=== PATIENT | female | born 1950 | race Hispanic/Latino ===

== ENCOUNTER → 2018-09-03 12:39 | Outpatient (CLI) | payer MEDICARE, MEDICAID, SELFPAY ==
--- NOTE | 2018-09-03 | DI.MRI.S_ITS ---
PROCEDURE: MR KNEE RT WO CON INDICATIONS: RIGHT KNEE OSTEOARTHRITIS AND PAIN TECHNIQUE: Noncontrast sagittal PD fast spin echo and T2 fast spin echo with fat saturation, sagittal 3-D FLASH with fat saturation; coronal T1 spin echo and PD fast spin echo with fat saturation, and axial PD fast spin echo with fat saturation through the knee. COMPARISON: [facility], MR, PARVIN RT KNEE, 10/09/2014, 19:53. [facility], CR, XR KNEE ARTHRITIC SERIES RT, 08/26/2018, 9:26. FINDINGS: Image quality: Excellent. Menisci: Medial extrusion of the medial meniscus. Linear oblique high T2 signal intensity traverses the medial meniscal body and anterior horn, demonstrating inferior articular surface extension. Radial tearing of the posterior horn medial meniscus adjacent to the meniscal root ligament insertion site. Lateral meniscus demonstrates linear high signal intensity traversing its anterior horn without definite articular surface extension. Cruciate ligaments: The anterior and posterior cruciate ligaments appear intact. Medial structures: The medial collateral ligament appears intact. Visualized portions of the pes anserinus tendons appear normal. Small amount of medial bursal fluid. Lateral structures: The lateral collateral ligament demonstrates mild T2 signal elevation at its femoral origin. long and short heads of the biceps femoris tendon appear intact. The popliteus tendon appears normal. Iliotibial band appears normal. Anterior structures: The quadriceps and patellar tendons appear intact. Patellar alignment is normal. No femoral trochlear dysplasia or ventral trochlear prominence. No edema in the infrapatellar fat pad. Bones and cartilage: No bone marrow contusions or fractures. Severe tricompartmental very articular osteophyte formation is present. There is mild subchondral degenerative marrow edema within the weightbearing aspects of the medial femoral condyle and medial tibial plateau. Severe articular cartilage loss overlies the central femoral trochlea. Joint space: There is a small knee joint effusion and a moderate Staley's cyst. Small ganglion cyst along the popliteus. Normal appearing synovial plicae are incidentally noted. IMPRESSION: 1. Tricompartmental osteoarthritis with associated articular cartilage loss. 2. Complex tearing of the medial meniscus. 3. Low-grade partial-thickness tearing of the lateral collateral ligament. 4. Mild medial bursitis. Dictated by: Barry Fiore M.D. on 09/03/2018 at 13:39 Approved by: Barry Fiore M.D. on 09/03/2018 at 13:43
== END ==
PROVIDERS: Visit Provider Orthopaedic Surgery
DX: S83.231A Complex tear of medial meniscus, current injury, right knee, initial encounter (principal); S83.421A Sprain of lateral collateral ligament of right knee, initial encounter; M17.11 Unilateral primary osteoarthritis, right knee; M71.561 Other bursitis, not elsewhere classified, right knee
CPT/HCPCS: 73721

== ENCOUNTER 2018-10-07 09:08 | Inpatient (IN) | payer MEDICARE, MEDICAID, SELFPAY ==
[2018-09-22 09:42] VITALS: BMI 36.6
[2018-10-06] VITALS (16 sets, daily range): BP systolic 110–176; BP diastolic 41–95; PULSE 60–82; RESP 14–20; TEMP 36.1–36.9; O2SAT 89–100; BMI 36.3; BMI 37.5
[2018-10-06] MEDS: CELECOXIB 200 MG CAPSULE PO (06:50)
[2018-10-06] MEDS: PREGABALIN 75 MG CAPSULE PO (06:50)
[2018-10-06] MEDS: ACETAMINOPHEN 325 MG TABLET 975 MG PO ×3 (06:50→20:15)
[2018-10-06] MEDS: LACTATED RINGERS 1,000 ML 42 ML IV ×2 (07:00→09:08)
[2018-10-06] MEDS: MIDAZOLAM 2 MG/2 ML VIAL IV (07:35)
--- NOTE | 2018-10-06 07:35 | SUR.PREOP ---
0738 block start time [] . Monitoring initiated and maintained throughout procedure. Oxygen and medications given per anesthesiologist instructions. Patient remained stable throughout procedure, no adverse reactions noted. Block end time [1145]
[2018-10-06] MEDS: fentaNYL 100 MCG/2 ML INJ 50 MCG IV (07:36)
--- NOTE | 2018-10-06 07:37 | PM.PREOP ---
Pre-operative Note Interval Note History & Physical reviewed/Exam performed by Physician: Yes Changes to H&P: No
--- NOTE | 2018-10-06 07:45 | DI.RAD.S_ITS ---
PROCEDURE: XR KNEE RT 1TO2V INDICATIONS: TKA TECHNIQUE: 2 view(s) of the knee acquired. COMPARISON: None. FINDINGS: Bones: Patient is status post knee joint arthroplasty. Hardware components are in expected positions. Visualized bony structures are intact. Soft tissues: Overlying postoperative changes are noted. IMPRESSION: Normal alignment after right total knee arthroplasty. Dictated by: Marlon Bocanegra M.D. on 10/06/2018 at 11:13 Approved by: Marlon Bocanegra M.D. on 10/06/2018 at 11:14
--- NOTE | 2018-10-06 08:04 | P.OP_ITS ---
Operative Date/Time/Diagnoses Date of procedure: 10/06/18 Time of procedure: 09:37 Pre-op diagnosis: Right knee osteoarthritis Post-op diagnosis: same Procedure & Clinicians Procedure: Right total knee arthroplasty Same procedure as scheduled: Yes Indications: The patient presents today for total knee arthroplasty after failure of conservative treatment. The nature of the procedure including the risks and benefits, alternatives, postoperative course and expected outcome were discussed and all questions answered. Consent was obtained. Operative site confirmed and marked. Surgeon: Cali Vizcaino Concrete Smoother: Jorge Slater Anesthesia Type: General, Spinal and Local Operative Notes Findings: The patient had a severe varus deformity. This is required a relatively thick cut laterally even with a thin medial cut. There was medial tightness which was fully corrected with releases. A 15 mm insert was required for adequate stability. Closure Type: primary Specimen(s): none sent Prosthetic devices, grafts, tissues, transplants, or devices: [employer] [facility] BCS: 3 femoral component, 3 tibial component, 15 mm BCS polyethylene tray and 32 x 9 mm round patella Applied: implant(s) Estimated Blood Loss (mL): 25 Blood products transfused: none Tourniquet time (min): 25 Procedure in detail: The patient was taken to the operative suite and placed under general and spinal anesthesia. The patient was given prophylactic antibiotics prior to surgery. The patient was also given tranexamic acid, 1 g, just prior to surgery for postoperative hemostasis. The lateral knee was prepped and the joint injected with 20 mL of 1% Lidocaine with epinephrine. The knee was then prepped and draped in usual sterile fashion. The leg was exsanguinated with an Esmarch dressing and the tourniquet raised to 250 torr. A 15 cm anterior incision was made. Next a medial trivector arthrotomy was made. The extensor mechanism was marked to ensure accurate repair. Initial exposing dissection was carried out medially and laterally. The knee was then extended and the patellar thickness was measured and a cut made removing approximately 9 mm of bone with a goal of restoring normal patellar thickness. The patella was then sized and drilled. Some excess lateral bone was excised and the patellofemoral ligament released. The tourniquet was then released. The knee was then flexed and the [employer] femoral guide was placed. The anterior pins were placed and the distal rotation holes drilled. The distal cutting guide was placed and the templated distal femoral cut was made. The templating cutting block was then placed and the anterior, posterior and chamfer cuts made. The [employer] tibial guide was placed and the alignment checked along the axis of the proximal tibial with a tami. The proximal tibial cut was then made with an oscillating saw. All meniscus and bony debris was then removed. Flexion extension gaps were checked. there was still some medial tightness in both flexion and extension. The knee was balanced with percutaneous release of the MCL with an 18 gauge needle. The soft tissues were then injected with a combination of 20 mL of half percent Marcaine with epinephrine and 20 mL of Exparel. The trial components were then placed. The knee went into full extension and flexion beyond 120?. There was good medial- lateral balance throughout motion but this did require a 15 mm insert because of her severe deformity and large lateral cut. Patellar tracking was excellent. The trial components were removed and size is confirmed for the final implants. The knee was then exsanguinated with an Esmarch dressing and the tourniquet reapplied for cementing. The knee was cleansed with Pulsavac irrigation and dried. The final components were cemented in with high viscosity vacuum mixed bone cement with antibiotics. The knee was held in extension and the patellar clamp until the cement had adequately cured. The knee was then irrigated with dilute Betadine solution. The extensor mechanism was closed with 5 interrupted #1 Vicryl sutures in 90 degrees of flexion. The joint was then injected with a combination of 1 g of tranexamic acid and 20 mL of quarter percent Marcaine with epinephrine. The subcutaneous tissue was closed with 2-0 Vicryl. The skin was closed with tena and surgical adhesive. An Aquacel dressing and Faustino wrap were then applied. Complications: none Condition: stable Disposition: PACU Plan for aftercare: [facility] protocol for total knee arthroplasty.
[2018-10-06] MEDS: CEFAZOLIN 2 GM/100 ML FROZ.PIGGY IV ×3 (08:05→23:44)
--- NOTE | 2018-10-06 08:32 | SUR.OPER ---
Supine on padded OR bed. Pillow under head, arms secured on padded armboards <90 degree abduction. Safety belt across torso. Non-operative leg secured with tape over blanket over lower leg. Operative leg secured in Manjit positioner. Foam padded brace at thigh of operative leg.
[2018-10-06] MEDS: BUPIVACAINE 0.25% W/ EPI (PF) 20 ML, TRANEXAMIC ACID 1,000 MG, SODIUM CHLORIDE 0.9% 10 ML INJ (08:41)
[2018-10-06] MEDS: LIDOCAINE 1% W/EPI INJ 20 ML INJ (08:42)
[2018-10-06] MEDS: BUPIVACAINE LIPOSOME 266 MG/20 ML VIAL INJ (08:44)
[2018-10-06] MEDS: LACTATED RINGERS 1,000 ML 125 ML IV ×2 (11:30→19:36)
[2018-10-06] MEDS: OXYCODONE IR 5 MG TABLET PO ×2 (12:24→18:10)
[2018-10-06] MEDS: ONDANSETRON 4 MG/2 ML INJ IV ×2 (12:39→18:05)
[2018-10-06] MEDS: HYDROMORPHONE 0.5 MG INJ IV ×2 (13:16→16:07)
--- NOTE | 2018-10-06 14:57 | PC.NURSE ---
Pt arrived to floor around 1100. She slept for about an hour and then woke up crying in pain. Dresing to R.knee is CDI with jessica wrap. Given 1 oxycodone, tylenol, and zofran for nausea. Checked 45 minutes later and pts pain level still at a 10/10. Pt then given 0.5mg of iv dilaudid and helpful. She is sleeping soundly on her back with leg elevated under a pillow. Pt is arousable to voice and comfortable. Ofelia in room visiting. IVF infusing at 125cc/hr.
--- NOTE | 2018-10-06 15:21 | PT.IPTN ---
Current Diagnoses Unilateral primary osteoarthritis, right knee (10/06/18) Surgery Performed Operation Date: 10/06/18 07:45 Actual Procedures p Total Knee Arthroplasty(Right) - Cali Vizcaino MD Physical Therapy Treatment Note M3 PT-IP Subjective Start: 10/06/18 15:20 Freq: NEEDED Status: Active Protocol: Document 10/06/18 15:20 AB (Rec: 10/06/18 15:21 AB [id number]) Subjective Physical Therapy Visit Type Notes checked on pt and pt is asleep . daughter present and stated that pt had gotten the max dose of pain meds and does not want pt to do PT eval at this time. will f/u tomorrow.
[2018-10-06] MEDS: ASPIRIN EC 81 MG TABLET PO (20:16)
[2018-10-06] MEDS: METOCLOPRAMIDE 10 MG/2 ML INJ IV (21:35)
--- NOTE | 2018-10-06 22:15 | PC.NURSE ---
1607: pt A&OX3. 97%2L. / pain. pt had dilaudid 0.5mg IV then got nauseated after the medication. IVF infusing. 1809: pain 11/22, 94% 2L at sleep, 97% while awake. medicated pt with 1 tab of percolone. and administered zofran for nausea. pt has not been oob. 1pa w/bedpan. R. leg slightly numb. call light in reach. bed alarm active.
[2018-10-07] VITALS (9 sets, daily range): BP systolic 110–196; BP diastolic 66–89; PULSE 57–70; RESP 16–19; TEMP 36.6–37.3; O2SAT 93–98
[2018-10-07] MEDS: OXYCODONE IR 10 MG TABLET PO ×5 (01:44→21:00)
[2018-10-07 06:10] LABS: Hematocrit 37.6 % (36-46); Hemoglobin 12.8 g/dL (12.0-16.0)
[2018-10-07] MEDS: LEVOTHYROXINE 125 MCG TABLET PO (06:21)
--- NOTE | 2018-10-07 06:34 | PC.NURSE ---
Pt crying after turning in bed, stating pain is 8 out of 10. 10mg Percolone given, pt fell asleep right after. Pt again crying this morning. Tolerating 1.5L NC at 93% throughout the night. Right knee dressing is clean, dry, and intact. Aquacel, wrapped in jessica bandage. CMS+, good pulses in feet, can move leg but not lift. IVF d/c'ed this AM. No nausea overnight. Drinking PO liquids
--- NOTE | 2018-10-07 07:30 | PM.PNPO.1 ---
Subjective Date Patient Seen: 10/07/18 Time Patient Seen: 07:31 Interval history: Patient states her pain has been severe. Denies fever. Notes some chills overnight. No nausea vomiting. Has not been out of bed yet. Grandson and granddaughter are available to assist her at home. Exam Vital Signs (past 8 hours): - 10/06/18 23:45 10/07/18 06:23 Temperature 97.8 F 98.0 F Pulse Rate 67 64 Respiratory Rate 17 19 Blood Pressure 140/68 136/75 Pulse Oximetry 99 95 Oxygen Delivery Method Nasal Cannula Oxygen Flow Rate 2 Narrative Exam Narrative: 68-year-old female resting in bed in no apparent distress. dressing is clean, dry and intact. Neurovascular status is intact distal right lower extremity. Objective Labs Result Diagrams: 10/07/18 05:57 Labs: Laboratory Results - last 24 hr 10/07/18 05:57 Hgb 12.8 Hct 37.6 Assessment & Plan Post-op Postoperative Procedures Operation Date: 10/06/18 07:45 Actual Procedures Side Surgeon p Total Knee Arthroplasty Right Cali Vizcaino MD Weightbearing as tolerated right lower extremity. Mobilize with physical therapy. Likely discharge home tomorrow. Quality VTE Deep Vein Thrombosis/Pulmonary Embolism Present on Admission: No
[2018-10-07] MEDS: MELOXICAM 7.5 MG TABLET 15 MG PO (07:42)
[2018-10-07] MEDS: METOPROLOL ER 25 MG TABLET PO (08:35)
[2018-10-07] MEDS: ACETAMINOPHEN 325 MG TABLET 975 MG PO ×3 (08:35→21:02)
[2018-10-07] MEDS: ASPIRIN EC 81 MG TABLET PO ×2 (08:36→21:02)
--- NOTE | 2018-10-07 09:42 | PT.IIE ---
Current Diagnoses Unilateral primary osteoarthritis, right knee (10/06/18) Surgery Performed Operation Date: 10/06/18 07:45 Actual Procedures p Total Knee Arthroplasty(Right) - Cali Vizcaino MD Surgical History (Last Updated 09/27/18 @ 10:24 by Adriane Ledezma RN) History of bilateral carpal tunnel release (Acute) History of bilateral tubal ligation (Acute ~1971) History of bladder suspension procedure (Acute) Hx of appendectomy (Acute) Hx of cholecystectomy (Acute) Hx of elbow surgery (Acute) Hx of hernia repair (Acute) Hx of tonsillectomy (Acute) S/P right oophorectomy (Acute) Medical History (Last Updated 09/27/18 @ 10:24 by Adriane Ledezma RN) Eczema (Acute) HTN (hypertension) (Acute) Hypothyroid (Acute) Lower back pain (Acute) Osteoarthritis (Acute) Seborrheic keratoses (Acute) Physical Therapy Inpatient Evaluation/Re-Eval M1 PT/OT-IP Prior Functional Status Start: 10/06/18 15:20 Freq: NEEDED Status: Active Protocol: Document 10/07/18 09:42 AB (Rec: 10/07/18 11:55 AB [id number]) Medical Review Prior Functional Status Medical History Reviewed Yes Communication able to make needs known Mobility and Gait pt stated that she is mod I with all mobilities and ambulation without AD indoors; uses SPC outdoors/electric scooter Social History Household Members family Living Arrangements Apartment/Condo Number of Floors (Floors) One Floor Number of Stairs To Enter/Railing? no steps to enter Home Environment Standard Height Toilet Tub/Shower Home Equipment Raised Toilet Seat Without Armrests Shower Seat without Backrest Employment Status Retired Additional Social History Comment pt lives with grandson who can assist her in the morning but goes to work from 1pm to 1030pm. M2 PT-IP Current Condition Start: 10/06/18 15:20 Freq: NEEDED Status: Active Protocol: Document 10/07/18 09:42 AB (Rec: 10/07/18 11:55 AB [id number]) Physical Therapy Current Condition Current Condition Evaluation Date 10/07/18 Treatment Diagnosis s/p R TKA; difficulty in walking Onset Date 10/06/18 Weight Bearing Status Weight Bearing Status Weight Bear as Tolerated M3 PT-IP Subjective Start: 10/06/18 15:20 Freq: NEEDED Status: Active Protocol: Document 10/07/18 09:42 AB (Rec: 10/07/18 11:55 AB [id number]) Subjective Physical Therapy Visit Type Type Initial Evaluation Visit Start Time 09:42 Visit Stop Time 10:28 Total Visit Minutes 46 Number of SUGGESTION CLERK Visits 0 Physical Therapy Visit Comments Patient Comments pt agreeable to do PT Therapy Pain Assessment Pain When Pain Assessed At Rest Pain Present Pain Present Pain Reported Location Right Knee Intensity 6 Scale Used Numeric (1 - 10) Pain Management Techniques Apply Cold Re-positioning Timing of Activity with Medications M4 PT-IP Mobility and Gait Start: 10/06/18 15:20 Freq: NEEDED Status: Active Protocol: Document 10/07/18 09:42 AB (Rec: 10/07/18 11:55 AB [id number]) PT-Bed Mobility Assessment Rolling Type of Rolling Roll to Right Level of Assist Minimal Assistance Supine to Sit Supine to Sit Contact Guard Assistance PT-Transfer Assessment Sit to and From Stand Sit to and from Stand Moderate Assistance Maximum Assistance 1 Person Assistance Equipment Transfer Assistive Device Gait Belt Front Wheeled Walker Orthotic/Prosthetic Devices or Brace: No Transfers Transfer Destination Chair Bedside Commode Transfer Technique Stand Step Pivot Transfer Ability Level of Assist Moderate Assistance 1 Person Assistance Use of Upper Extremities Comments Mobility Comments pt requested to use the toilet . positioned bedside commode next to bed. pt completed sit to stand mod to max A and max cues and completed stand step pivot transfer using FWW mod A and cues bed to bedside commode. pt completed sit to stand from bedside commode mod to max A and was able to maintain standing balance using FWW for support mod A and cues while NAC assisted with brief management. pt agreed to sit up on chair and completed stand step transfer to the chair using FWW mod A and max cues. positioned pt on chair. call light and table placed witin reach. Gait Assessment Comments Gait Comments unable at this time PT-Balance Assessment Sitting Balance and Reactions Static Sitting Balance Ability Good Dynamic Sitting Balance Ability Good Standing Balance and Reactions Static Standing Balance Ability Fair Dynamic Standing Balance Ability Poor Device Used FWW M5 PT-IP Objective Assessments Start: 10/06/18 15:20 Freq: NEEDED Status: Active Protocol: Document 10/07/18 09:42 AB (Rec: 10/07/18 11:55 AB [id number]) Orientation Orientation/Cognition Level of Alertness Alert Orientation Name Place Situation Language Function Ability No Deficits Noted Safety Awareness Decreased Safety Awareness Memory Description Short Term Impaired Gross Range of Motion Lower Extremity ROM Assessment Right Impaired Impairments R knee flexion up to 50 degrees R knee extension lacking 20 degrees to neutral Strength Lower Extremity Strength Assessment Bilaterally Impaired Comments Strength Comments RLE 3-/5 LLE: 3+/5 Coordination Assessment Gross Coordination Gross Coordination WNL Sensation Assessment Sensation Gross Sensation WNL Muscle Tone Muscle Tone WNL Yes M6 PT-IP Treatment Start: 10/06/18 15:20 Freq: NEEDED Status: Active Protocol: Document 10/07/18 09:42 AB (Rec: 10/07/18 11:55 AB [id number]) Physical Therapy Treatment Education Education Provided Precautions Weight Bearing Status Post-Op Packet Safety M7 PT-IP Assessment and Plan Start: 10/06/18 15:20 Freq: NEEDED Status: Active Protocol: Document 10/07/18 09:42 AB (Rec: 10/07/18 11:55 AB [id number]) PT Summary Assessment and Plan Potential Rehabilitation Potential Fair Status of Condition at Evaluation Evolving Summary Impairments Pain ROM Strength Balance Coordination Sensation Bed Mobility Transfers Gait Activity Tolerance Assessment Summary pt requiring mod to max a with mobility and has decrease activity tolerance affecting functional mobility. pt will require SNF rehab at this time to improve strength and independence prior to d/c home . Goals Bed Mobility Goal Standby Assistance Transfer Goal Standby Assistance Front Wheeled Walker Gait Goal Standby Assistance Front Wheel Walker Gait Distance 100 Days to Meet Goals 5 Frequency of Treatment Frequency Of Treatment Twice a Day Treatment Plan Physical Therapy Treatment Plan Bed Mobility Training Transfer Training Gait Training Therapeutic Exercise Balance Retraining Post Op Education Discharge Planning Hot or Cold Pack Neuromuscular Re-ed Coordination Retraining Manual Therapy Other Recommendations and Next Treatment ambulation Focus Recommendations To Nursing Amount of Assist Needed 2 Person Assist Discharge Recommendations PT Discharge Recommendations SNF Rehab
--- NOTE | 2018-10-07 10:26 | CM.IDA ---
Initial DCP Assessment Note: Pt is a 68 yo female, resident of [place], POD#1 from her knee surgery w/ Dr Vizcaino. PCP: Dr Carter Lawson Payer: Medicare/Medicaid According to chart review, pt has been crying and complaining of out of control pain post operatively. Met w/pt this morning to explain role. She is mostly indp. at baseline, lives w/20 yo her grandson Isaias. He works in the afternoon/evening at [employer]. Grand dtmichelle Thornton P# [phone] has 5 children and lives in [place]. Pt's denies having contact w/ adult child(ish) ? Re: plan ? Pt hesitates and says she has planned to go home because it's all I know then states she didn't think about who would be available to her since grandsergio works and grand rosas has a large family of her own. This RIVER CAPTAIN suggests return and discussion of DCP after pt works w/PT today and pt agrees and grateful for the visit. LATA Rhodes Discharge Planning/Care Management CM Discharge Assessment Start: 10/07/18 10:22 Freq: Status: Active Protocol: Document 10/07/18 10:22 JIM (Rec: 10/07/18 10:26 JIM [id number]) Discharge Planning Assessment Assigned Super[employer] LATA Cifuentes DPOA/Assigned Designee Name No Isaias MCKINNON (grandsergio) number (?) grand alison Thornton Contact Information [phone] Advance Directives? No: Declines further information History Provided By Patient Prior Living Arrangements Apartment/Condo Household Members family Comment My [facility] Type of transporation used prior to Relies on Others admit Independent with ADL's Yes Is patient alert and oriented? Yes Patient/Family Preference [facility] Facility Home with Home Health Comment Unknown at this time Barriers to Discharge Yes Whiteboard Updated in Patient Room with Yes name and ext. # of Super[employer] Review Status In Process
--- NOTE | 2018-10-07 13:49 | PC.NURSE ---
Pt is having pain 6-810. Medicated w/ oxycodone Q3 hrs and Tylenol BID.
--- NOTE | 2018-10-07 13:59 | PT.IPTN ---
Current Diagnoses Unilateral primary osteoarthritis, right knee (10/06/18) Surgery Performed Operation Date: 10/06/18 07:45 Actual Procedures p Total Knee Arthroplasty(Right) - Cali Vizcaino MD Physical Therapy Treatment Note M2 PT-IP Current Condition Start: 10/06/18 15:20 Freq: NEEDED Status: Active Protocol: Document 10/07/18 09:42 AB (Rec: 10/07/18 11:55 AB [id number]) Physical Therapy Current Condition Current Condition Evaluation Date 10/07/18 Treatment Diagnosis s/p R TKA; difficulty in walking Onset Date 10/06/18 Weight Bearing Status Weight Bearing Status Weight Bear as Tolerated M3 PT-IP Subjective Start: 10/06/18 15:20 Freq: NEEDED Status: Active Protocol: Document 10/07/18 13:59 AB (Rec: 10/07/18 16:35 AB [id number]) Subjective Physical Therapy Visit Type Type Treatment Note Visit Start Time 13:59 Visit Stop Time 14:31 Total Visit Minutes 32 Number of BRUSHER WARP Visits 0 Physical Therapy Visit Comments Patient Comments pt agreeable to do PT Therapy Pain Assessment Pain When Pain Assessed At Rest Pain Present Pain Present Pain Reported Location Head Intensity 6 Scale Used Numeric (1 - 10) Pain Behaviors Crying Facial Grimacing Guarding Moaning Pain Management Techniques Apply Cold Re-positioning Timing of Activity with Medications M4 PT-IP Mobility and Gait Start: 10/06/18 15:20 Freq: NEEDED Status: Active Protocol: Document 10/07/18 13:59 AB (Rec: 10/07/18 16:35 AB [id number]) PT-Bed Mobility Assessment Supine to Sit Supine to Sit Maximum Assistance 1 Person Assistance Scooting Scooting to Edge of Bed Maximum Assistance PT-Transfer Assessment Sit to and From Stand Sit to and from Stand Moderate Assistance Maximum Assistance 1 Person Assistance Use of Upper Extremities Equipment Transfer Assistive Device Gait Belt Front Wheeled Walker Orthotic/Prosthetic Devices or Brace: No Transfers Transfer Destination Toilet Transfer Technique pt ambulated using FWW Transfer Ability Level of Assist Moderate Assistance Maximum Assistance 1 Person Assistance Use of Upper Extremities Comments Mobility Comments pt completed supine to sit max A and cues. pt was able to sit on EOB SBA. requested to use the toilet and completed sit to stand mod to max A and max cues. pt ambulated towards the toilet ` 10 ft using FWW mod to max A and max cues. pt with antalgic gait and decrease RLE elevation. pt was able to maintain standing balance/tolerance using FWW for support mod A while assisted with brief managment. pt completed sit to stand from the toilet mod A using grab bar to assist. pt . ambulated towards the chair ~ 3 ft using FWW mod to max A and max cues. positioned pt on chair. call light and table placed within reach. ice pack provided. Gait Assessment Comments Gait Comments pt ambulated to the toilet. pls refer to mobility section for details M5 PT-IP Objective Assessments Start: 10/06/18 15:20 Freq: NEEDED Status: Active Protocol: Document 10/07/18 09:42 AB (Rec: 10/07/18 11:55 AB [id number]) Orientation Orientation/Cognition Level of Alertness Alert Orientation Name Place Situation Language Function Ability No Deficits Noted Safety Awareness Decreased Safety Awareness Memory Description Short Term Impaired Gross Range of Motion Lower Extremity ROM Assessment Right Impaired Impairments R knee flexion up to 50 degrees R knee extension lacking 20 degrees to neutral Strength Lower Extremity Strength Assessment Bilaterally Impaired Comments Strength Comments RLE 3-/5 LLE: 3+/5 Coordination Assessment Gross Coordination Gross Coordination WNL Sensation Assessment Sensation Gross Sensation WNL Muscle Tone Muscle Tone WNL Yes M6 PT-IP Treatment Start: 10/06/18 15:20 Freq: NEEDED Status: Active Protocol: Document 10/07/18 13:59 AB (Rec: 10/07/18 16:35 AB [id number]) Physical Therapy Treatment Exercises Exercises Heel Slides Education Education Provided Weight Bearing Status Safety M7 PT-IP Assessment and Plan Start: 10/06/18 15:20 Freq: NEEDED Status: Active Protocol: Document 10/07/18 13:59 AB (Rec: 10/07/18 16:35 AB [id number]) PT Summary Assessment and Plan Potential Rehabilitation Potential Fair Summary Impairments Pain ROM Strength Balance Coordination Sensation Bed Mobility Transfers Gait Activity Tolerance Progress Towards Goals Slow Progress due to Pain Assessment Summary pt requiring mod to max A with all tasks and will benefit from SNF rehab to improve strength and mobility. Goals Bed Mobility Goal Standby Assistance Transfer Goal Standby Assistance Front Wheeled Walker Gait Goal Standby Assistance Front Wheel Walker Gait Distance 100 Days to Meet Goals 5 Frequency of Treatment Frequency Of Treatment Twice a Day Treatment Plan Physical Therapy Treatment Plan Bed Mobility Training Transfer Training Gait Training Therapeutic Exercise Balance Retraining Post Op Education Discharge Planning Hot or Cold Pack Neuromuscular Re-ed Coordination Retraining Manual Therapy Other Recommendations and Next Treatment ambulation Focus Recommendations To Nursing Amount of Assist Needed 2 Person Assist Discharge Recommendations PT Discharge Recommendations SNF Rehab
[2018-10-07] MEDS: OXYCODONE IR 5 MG TABLET PO (18:13)
[2018-10-08] VITALS (10 sets, daily range): BP systolic 126–174; BP diastolic 56–90; PULSE 61–80; RESP 16–20; TEMP 36.8–37.4; O2SAT 92–95
[2018-10-08] MEDS: OXYCODONE IR 5 MG TABLET PO ×5 (01:13→23:22)
[2018-10-08] MEDS: LEVOTHYROXINE 125 MCG TABLET PO (05:19)
[2018-10-08] MEDS: OXYCODONE IR 10 MG TABLET PO (05:19)
[2018-10-08] MEDS: MELOXICAM 7.5 MG TABLET 15 MG PO (08:37)
[2018-10-08] MEDS: ACETAMINOPHEN 325 MG TABLET 975 MG PO ×3 (08:38→20:10)
[2018-10-08] MEDS: PROCHLORPERAZINE 5 MG TABLET PO (08:38)
[2018-10-08] MEDS: ASPIRIN EC 81 MG TABLET PO ×2 (08:38→20:10)
[2018-10-08] MEDS: METOPROLOL ER 25 MG TABLET PO (08:39)
[2018-10-08] MEDS: SODIUM CHLORIDE 0.9% FLUSH 10 ML IV ×2 (08:39→20:11)
--- NOTE | 2018-10-08 10:22 | PT.IPTN ---
Current Diagnoses Unilateral primary osteoarthritis, right knee (10/06/18) Surgery Performed Operation Date: 10/06/18 07:45 Actual Procedures p Total Knee Arthroplasty(Right) - Cali Vizcaino MD Physical Therapy Treatment Note M2 PT-IP Current Condition Start: 10/06/18 15:20 Freq: NEEDED Status: Active Protocol: Document 10/07/18 09:42 AB (Rec: 10/07/18 11:55 AB [id number]) Physical Therapy Current Condition Current Condition Evaluation Date 10/07/18 Treatment Diagnosis s/p R TKA; difficulty in walking Onset Date 10/06/18 Weight Bearing Status Weight Bearing Status Weight Bear as Tolerated M3 PT-IP Subjective Start: 10/06/18 15:20 Freq: NEEDED Status: Active Protocol: Document 10/08/18 10:22 AB (Rec: 10/08/18 11:12 AB [id number]) Subjective Physical Therapy Visit Type Type Treatment Note Visit Start Time 10:22 Visit Stop Time 10:50 Total Visit Minutes 28 Number of SHIPPING AND RECEIVING CLERK Visits 0 Physical Therapy Visit Comments Patient Comments pt agreeable to do PT; requested to use the toilet Therapy Pain Assessment Pain When Pain Assessed At Rest Pain Present Pain Present Pain Reported Location Right Knee Intensity 6 Scale Used Numeric (1 - 10) Pain Behaviors Guarding Moaning Pain Management Techniques Apply Cold Timing of Activity with Medications M4 PT-IP Mobility and Gait Start: 10/06/18 15:20 Freq: NEEDED Status: Active Protocol: Document 10/08/18 10:22 AB (Rec: 10/08/18 11:12 AB [id number]) PT-Transfer Assessment Sit to and From Stand Sit to and from Stand Minimal Assistance 1 Person Assistance Use of Upper Extremities Equipment Transfer Assistive Device Gait Belt Front Wheeled Walker Transfers Transfer Destination Toilet Transfer Technique pt ambulated to the toilet Transfer Ability Level of Assist Minimal Assistance 1 Person Assistance Use of Upper Extremities Comments Mobility Comments pt ambulated from the chair to the toilet using FWW min A and cues ~ 10 ft. pt was able to maintain standing using FWW for support CGA while assisted with brief management . pt completed sit to stand from the toilet using grab bar to assist min A and cues. ambulated towards the sink min A using fWW ~ 10 ft. pt was able to maintain standing leaning against the sink for support CGA while completing handwashing and grooming. pt ambulated back to the chair using FWW ~ 8 ft min A. pt continues to c/o increase pain on R knee. requires increase time to complete tasks. positioned pt on chair. call light and table placed within reach. Gait Assessment Comments Gait Comments pt ambulated to the toilet. M5 PT-IP Objective Assessments Start: 10/06/18 15:20 Freq: NEEDED Status: Active Protocol: Document 10/07/18 09:42 AB (Rec: 10/07/18 11:55 AB [id number]) Orientation Orientation/Cognition Level of Alertness Alert Orientation Name Place Situation Language Function Ability No Deficits Noted Safety Awareness Decreased Safety Awareness Memory Description Short Term Impaired Gross Range of Motion Lower Extremity ROM Assessment Right Impaired Impairments R knee flexion up to 50 degrees R knee extension lacking 20 degrees to neutral Strength Lower Extremity Strength Assessment Bilaterally Impaired Comments Strength Comments RLE 3-/5 LLE: 3+/5 Coordination Assessment Gross Coordination Gross Coordination WNL Sensation Assessment Sensation Gross Sensation WNL Muscle Tone Muscle Tone WNL Yes M6 PT-IP Treatment Start: 10/06/18 15:20 Freq: NEEDED Status: Active Protocol: Document 10/08/18 10:22 AB (Rec: 10/08/18 11:12 AB [id number]) Physical Therapy Treatment Exercises Exercises Heel Slides Education Education Provided Precautions Safety M7 PT-IP Assessment and Plan Start: 10/06/18 15:20 Freq: NEEDED Status: Active Protocol: Document 10/08/18 10:22 AB (Rec: 10/08/18 11:12 AB [id number]) PT Summary Assessment and Plan Potential Rehabilitation Potential Fair Summary Impairments Pain ROM Strength Balance Coordination Sensation Bed Mobility Transfers Gait Activity Tolerance Progress Towards Goals Slow Progress due to Pain Assessment Summary pt improving slowly with mobility but continues to c/o increase pain on R knee. pt requires increase time to complete tasks. pt will need SNF rehab to improve strength and functional independence. Goals Bed Mobility Goal Standby Assistance Transfer Goal Standby Assistance Front Wheeled Walker Gait Goal Standby Assistance Front Wheel Walker Gait Distance 100 Days to Meet Goals 5 Frequency of Treatment Frequency Of Treatment Twice a Day Treatment Plan Physical Therapy Treatment Plan Bed Mobility Training Transfer Training Gait Training Therapeutic Exercise Balance Retraining Post Op Education Discharge Planning Hot or Cold Pack Neuromuscular Re-ed Coordination Retraining Manual Therapy Other Recommendations and Next Treatment ambulation Focus Recommendations To Nursing Amount of Assist Needed 1 Person Assist Discharge Recommendations PT Discharge Recommendations SNF Rehab
--- NOTE | 2018-10-08 14:12 | PT.IPTN ---
Current Diagnoses Unilateral primary osteoarthritis, right knee (10/06/18) Surgery Performed Operation Date: 10/06/18 07:45 Actual Procedures p Total Knee Arthroplasty(Right) - Cali Vizcaino MD Physical Therapy Treatment Note M2 PT-IP Current Condition Start: 10/06/18 15:20 Freq: NEEDED Status: Active Protocol: Document 10/07/18 09:42 AB (Rec: 10/07/18 11:55 AB [id number]) Physical Therapy Current Condition Current Condition Evaluation Date 10/07/18 Treatment Diagnosis s/p R TKA; difficulty in walking Onset Date 10/06/18 Weight Bearing Status Weight Bearing Status Weight Bear as Tolerated M3 PT-IP Subjective Start: 10/06/18 15:20 Freq: NEEDED Status: Active Protocol: Document 10/08/18 14:12 AB (Rec: 10/08/18 15:39 AB [id number]) Subjective Physical Therapy Visit Type Type Treatment Note Visit Start Time 14:12 Visit Stop Time 14:30 Total Visit Minutes 18 Number of CORPORATE WELLNESS COORDINATOR Visits 0 Therapy Pain Assessment Pain When Pain Assessed At Rest Location Right Knee Intensity 6 Scale Used Numeric (1 - 10) M4 PT-IP Mobility and Gait Start: 10/06/18 15:20 Freq: NEEDED Status: Active Protocol: Document 10/08/18 14:12 AB (Rec: 10/08/18 15:39 AB [id number]) PT-Transfer Assessment Sit to and From Stand Sit to and from Stand Minimal Assistance 1 Person Assistance Use of Upper Extremities Equipment Transfer Assistive Device Gait Belt Front Wheeled Walker Orthotic/Prosthetic Devices or Brace: No Transfers Transfer Destination Toilet Transfer Technique pt ambulated to the toilet using fWW Transfer Ability Level of Assist Minimal Assistance Use of Upper Extremities Comments Mobility Comments pt completed sit to stand from chair min A and cues. requires increase time to complete task. pt requested to use the toilet and ambulated using FWW CGA to min A and cues. pt was able to maintain standing using FWW for support CGA while assisted with brief management. pt wants to sit on the toilet for awhile. call light positioned nex to pt and instructed to pull call button when ready. Pt understood. M5 PT-IP Objective Assessments Start: 10/06/18 15:20 Freq: NEEDED Status: Active Protocol: Document 10/07/18 09:42 AB (Rec: 10/07/18 11:55 AB [id number]) Orientation Orientation/Cognition Level of Alertness Alert Orientation Name Place Situation Language Function Ability No Deficits Noted Safety Awareness Decreased Safety Awareness Memory Description Short Term Impaired Gross Range of Motion Lower Extremity ROM Assessment Right Impaired Impairments R knee flexion up to 50 degrees R knee extension lacking 20 degrees to neutral Strength Lower Extremity Strength Assessment Bilaterally Impaired Comments Strength Comments RLE 3-/5 LLE: 3+/5 Coordination Assessment Gross Coordination Gross Coordination WNL Sensation Assessment Sensation Gross Sensation WNL Muscle Tone Muscle Tone WNL Yes M6 PT-IP Treatment Start: 10/06/18 15:20 Freq: NEEDED Status: Active Protocol: Document 10/08/18 10:22 AB (Rec: 10/08/18 11:12 AB [id number]) Physical Therapy Treatment Exercises Exercises Heel Slides Education Education Provided Precautions Safety M7 PT-IP Assessment and Plan Start: 10/06/18 15:20 Freq: NEEDED Status: Active Protocol: Document 10/08/18 14:12 AB (Rec: 10/08/18 15:39 AB [id number]) PT Summary Assessment and Plan Potential Rehabilitation Potential Fair Summary Impairments Pain ROM Strength Balance Coordination Sensation Tone Cognition Bed Mobility Transfers Gait Activity Tolerance Progress Towards Goals Slow Progress due to Pain Assessment Summary pt continues to require one person assist with mobility and will not have assistance at home. pt continues to c/o increase pain on R knee and requires increase time to complete tasks. Pt will benefit from SNF rehab to improve strength and function. Goals Bed Mobility Goal Standby Assistance Transfer Goal Standby Assistance Front Wheeled Walker Gait Goal Standby Assistance Front Wheel Walker Gait Distance 100 Days to Meet Goals 5 Frequency of Treatment Frequency Of Treatment Twice a Day Treatment Plan Physical Therapy Treatment Plan Bed Mobility Training Transfer Training Gait Training Therapeutic Exercise Balance Retraining Post Op Education Discharge Planning Hot or Cold Pack Neuromuscular Re-ed Coordination Retraining Manual Therapy Other Recommendations and Next Treatment ambulation Focus Recommendations To Nursing Amount of Assist Needed 1 Person Assist Discharge Recommendations PT Discharge Recommendations SNF Rehab
--- NOTE | 2018-10-08 14:26 | P.PN_ITS ---
Subjective Date Patient Seen: 10/08/18 Interval history: Patient seen bedside s/p R. TKA POD #2. Patient has been a mbulating with assistance, but has a lot of pain. She lives with her grandson but states that he works in the afternoons and she would be left alone. Patient is anxious, but denies chest pain and shortness of breath. She is nauseated though. She states that she gets nausea with all pain medications. Exam Vital Signs (past 8 hours): - 10/08/18 08:00 10/08/18 08:38 10/08/18 08:39 Temperature 99.0 F Pulse Rate 74 74 74 Respiratory Rate 16 Blood Pressure 164/90 H 174/90 H 164/90 H Pulse Oximetry 93 10/08/18 09:46 10/08/18 12:00 Temperature 98.6 F Pulse Rate 61 61 Respiratory Rate 16 Blood Pressure 151/70 H 126/72 Pulse Oximetry 95 Oxygen Delivery Method Room Air Oxygen Flow Rate 0 Narrative Exam Narrative: Well-developed, well-nourished, no acute distress. Alert and oriented to person, place, and time. Dressing on operative knee is clean, dry, and intact with no signs of drainage. Minimal erythema and generalized swelling around the surgical site. Neurovascularly intact in operative extremity with a soft and compressible calf. Range of motion of the operative ankle intact. Objective Labs Result Diagrams: 10/07/18 05:57 Assessment & Plan Post-op Postoperative Procedures Operation Date: 10/06/18 07:45 Actual Procedures Side Surgeon p Total Knee Arthroplasty Right Cali Vizcaino MD 1. s/p above procedure POD #2-patient would like to go to a SNF and is currently recommended for one by PT. Will discuss with case management. Patient was switched to inpatient yesterday, so will be eligible for SNF discharge on Thursday. Continue ambulation and pain control. Quality VTE Deep Vein Thrombosis/Pulmonary Embolism Present on Admission: No
--- NOTE | 2018-10-08 15:26 | PC.NURSE ---
Pt had a bm at 1430. She is being medicated with oxycodone and given compazine x1. Denied any further nausea. Using the bathroom now and is a one person assist to ambulate.
[2018-10-09 03:33] VITALS: BP 153/79; PULSE 74; RESP 20; TEMP 37.2; O2SAT 92
[2018-10-09] MEDS: OXYCODONE IR 5 MG TABLET PO ×6 (03:36→22:52)
[2018-10-09] MEDS: SODIUM CHLORIDE 0.9% FLUSH 10 ML IV ×3 (04:07→20:57)
[2018-10-09] MEDS: ONDANSETRON 4 MG ODT PO (04:08)
[2018-10-09] MEDS: LEVOTHYROXINE 125 MCG TABLET PO (06:45)
[2018-10-09 07:30] VITALS: BP 155/77; PULSE 71; RESP 16; TEMP 36.9; O2SAT 95
[2018-10-09] MEDS: MELOXICAM 7.5 MG TABLET 15 MG PO (08:26)
[2018-10-09] MEDS: ACETAMINOPHEN 325 MG TABLET 975 MG PO ×3 (08:27→20:56)
[2018-10-09] MEDS: ASPIRIN EC 81 MG TABLET PO ×2 (08:28→20:56)
[2018-10-09] MEDS: METOPROLOL ER 25 MG TABLET PO (08:29)
--- NOTE | 2018-10-09 10:18 | P.PN_ITS ---
Subjective Date Patient Seen: 10/09/18 Time Patient Seen: 09:16 Interval history: 68 year old female who is POD#3 s/p right total knee arthroplasty. She has been slow to mobilize with PT, has been up to the commode and shower but fatigues easily and is not walking in the halls. Pain is well controlled with oxycodone. She has been voiding with no difficulty, denies bowel movement. Exam Vital Signs (past 8 hours): - 10/09/18 03:33 10/09/18 07:30 Temperature 98.9 F 98.4 F Pulse Rate 74 71 Respiratory Rate 20 16 Blood Pressure 153/79 H 155/77 H Pulse Oximetry 92 95 Oxygen Delivery Method Room Air Oxygen Flow Rate 0 Narrative Exam Narrative: Pleasant 68 year old female resting comfortably in bed in no acute distress, alert and oriented. Aquacel dressing in place is clean, dry and intact with no visible drainage. Intact active ROM of the foot and ankle. Intact distal pulses. Good sensation in bilateral distal lower extremities. Objective Labs Result Diagrams: 10/07/18 05:57 Assessment & Plan Post-op Postoperative Procedures Operation Date: 10/06/18 07:45 Actual Procedures Side Surgeon p Total Knee Arthroplasty Right Cali Vizcaino MD Continue to mobilize with PT. Continue current pain medications as she has good pain control. Bowel regimen of Docusate and Miralax added today. Possible discharge to SNF tomorrow pending finding a bed as she is having diffi culty mobilizing and will be alone at home for long periods of time. Quality VTE Deep Vein Thrombosis/Pulmonary Embolism Present on Admission: No
--- NOTE | 2018-10-09 10:40 | PT.IPTN ---
Current Diagnoses Unilateral primary osteoarthritis, right knee (10/06/18) Surgery Performed Operation Date: 10/06/18 07:45 Actual Procedures p Total Knee Arthroplasty(Right) - Cali Vizcaino MD Physical Therapy Treatment Note M2 PT-IP Current Condition Start: 10/06/18 15:20 Freq: NEEDED Status: Active Protocol: Document 10/07/18 09:42 AB (Rec: 10/07/18 11:55 AB [id number]) Physical Therapy Current Condition Current Condition Evaluation Date 10/07/18 Treatment Diagnosis s/p R TKA; difficulty in walking Onset Date 10/06/18 Weight Bearing Status Weight Bearing Status Weight Bear as Tolerated M3 PT-IP Subjective Start: 10/06/18 15:20 Freq: NEEDED Status: Active Protocol: Document 10/09/18 10:40 GGD (Rec: 10/09/18 11:04 GGD [email or web address]) Subjective Physical Therapy Visit Type Type Treatment Note Visit Start Time 10:10 Visit Stop Time 10:40 Total Visit Minutes 30 Number of HORSE AND WAGON DRIVER Visits 1 Physical Therapy Visit Comments Patient Comments Pt willing to work with therapy. Therapy Pain Assessment Pain When Pain Assessed At Rest Pain Present Pain Present Pain Reported Location Right Knee Intensity 5 Scale Used Numeric (1 - 10) Pain Behaviors Guarding Holding Area [place] Pain Management Techniques Apply Cold Re-positioning Timing of Activity with Medications M4 PT-IP Mobility and Gait Start: 10/06/18 15:20 Freq: NEEDED Status: Active Protocol: Document 10/09/18 10:40 GGD (Rec: 10/09/18 11:04 GGD [id number]) PT-Bed Mobility Assessment Supine to Sit Supine to Sit Minimal Assistance 1 Person Assistance Bedrails Scooting Scooting to Edge of Bed Minimal Assistance PT-Transfer Assessment Sit to and From Stand Sit to and from Stand Contact Guard Assistance Use of Upper Extremities Equipment Transfer Assistive Device Gait Belt Front Wheeled Walker Orthotic/Prosthetic Devices or Brace: No Transfers Transfer Destination Chair Transfer Ability Level of Assist Contact Guard Assistance 1 Person Assistance Use of Upper Extremities Gait Assessment Gait Gait Assistance Required: Contact Guard Assist Distance (Feet) 25 Able to Maintain Weight Bearing Status Yes During Gait Assistive Devices Assistive Device Front Wheeled Walker Orthotic/Prosthetic Devices or Brace: No Gait Deviations General Gait Pattern Antalgic Decreased Stride Length Decreased Feet Clearance Step-to Gait Factors Limiting Gait Function Factors Limiting Gait Function Decreased Activity Tolerance Decreased Strength Limited Range of Motion Pain Poor Balance M5 PT-IP Objective Assessments Start: 10/06/18 15:20 Freq: NEEDED Status: Active Protocol: Document 10/07/18 09:42 AB (Rec: 10/07/18 11:55 AB [id number]) Orientation Orientation/Cognition Level of Alertness Alert Orientation Name Place Situation Language Function Ability No Deficits Noted Safety Awareness Decreased Safety Awareness Memory Description Short Term Impaired Gross Range of Motion Lower Extremity ROM Assessment Right Impaired Impairments R knee flexion up to 50 degrees R knee extension lacking 20 degrees to neutral Strength Lower Extremity Strength Assessment Bilaterally Impaired Comments Strength Comments RLE 3-/5 LLE: 3+/5 Coordination Assessment Gross Coordination Gross Coordination WNL Sensation Assessment Sensation Gross Sensation WNL Muscle Tone Muscle Tone WNL Yes M6 PT-IP Treatment Start: 10/06/18 15:20 Freq: NEEDED Status: Active Protocol: Document 10/09/18 10:40 GGD (Rec: 10/09/18 11:04 GGD [email or web address]) Physical Therapy Treatment Exercises Exercises Ankle Pumps Quad Sets Heel Slides Seated Knee Flexion/Extension M7 PT-IP Assessment and Plan Start: 10/06/18 15:20 Freq: NEEDED Status: Active Protocol: Document 10/09/18 10:40 GGD (Rec: 10/09/18 11:04 GGD [id number]) PT Summary Assessment and Plan Summary Assessment Summary Pt needs one person assist with bed mobility. She had increase in pain with weight bearing. She needed min A for controlled sit. Pt would benefit from SNF rehab. Frequency of Treatment Frequency Of Treatment Twice a Day Treatment Plan Physical Therapy Treatment Plan Bed Mobility Training Transfer Training Gait Training Therapeutic Exercise Balance Retraining Post Op Education Discharge Planning Hot or Cold Pack Neuromuscular Re-ed Coordination Retraining Manual Therapy Other Recommendations and Next Treatment ambulation Focus Recommendations To Nursing Amount of Assist Needed 1 Person Assist Discharge Recommendations PT Discharge Recommendations SNF Rehab
[2018-10-09 11:15] VITALS: BP 133/73; PULSE 61; RESP 16; TEMP 37; O2SAT 97
--- NOTE | 2018-10-09 11:43 | CM.DPNOTE ---
Addendum entered by LATA Rhodes 10/09/18 15:36: [facility] accepts for admission Thursday. Pt relieved and agreeable to this plan, she says she will update her grand dtr Hillary. IMM reviewed and signed by pt. Explained cabulance transportation will be arranged Thursday, Pt appreciative. JW Original Note: Medical and therapy team recommending SNF. Pt gives this MD PHYSICIAN DERMATOLOGIST permission to speak w/grand dtr Hillary so placed return call to Hillary at P#[phone], she explains pt does not want to go to [facility] in [place] but [facility] or [facility] would be okay. Hillary plans to take pt home w/her upon DC from SNF to assist as needed. Reviewed DCP w/pt yesterday and today; she would like [facility] to be her first choice, [facility] to be b/u. This MD PHYSICIAN DERMATOLOGIST faxed referral to both [facility] and [facility]; spoke w/Kamar Flower P# [phone], he is filling in for admissions today, he is typically the director of the Rehab team at [facility]. He received this referral and states their RN is reviewing med list, acceptance pending review. PASRR completed. Now awaiting acceptance from a facility for DC Thursday. LATA Rhodes
--- NOTE | 2018-10-09 13:25 | PT.IPTN ---
Current Diagnoses Unilateral primary osteoarthritis, right knee (10/06/18) Surgery Performed Operation Date: 10/06/18 07:45 Actual Procedures p Total Knee Arthroplasty(Right) - Cali Vizcaino MD Physical Therapy Treatment Note M2 PT-IP Current Condition Start: 10/06/18 15:20 Freq: NEEDED Status: Active Protocol: Document 10/07/18 09:42 AB (Rec: 10/07/18 11:55 AB [id number]) Physical Therapy Current Condition Current Condition Evaluation Date 10/07/18 Treatment Diagnosis s/p R TKA; difficulty in walking Onset Date 10/06/18 Weight Bearing Status Weight Bearing Status Weight Bear as Tolerated M3 PT-IP Subjective Start: 10/06/18 15:20 Freq: NEEDED Status: Active Protocol: Document 10/09/18 13:25 GGD (Rec: 10/09/18 13:53 GGD [email or web address]) Subjective Physical Therapy Visit Type Type Treatment Note Visit Start Time 13:00 Visit Stop Time 13:25 Total Visit Minutes 25 Number of ORNAMENT SETTER Visits 2 Physical Therapy Visit Comments Patient Comments Pt states she would like to go back to bed. Therapy Pain Assessment Pain When Pain Assessed At Rest Pain Present Pain Present Pain Reported M4 PT-IP Mobility and Gait Start: 10/06/18 15:20 Freq: NEEDED Status: Active Protocol: Document 10/09/18 13:25 GGD (Rec: 10/09/18 13:53 GGD [email or web address]) PT-Bed Mobility Assessment Sit to Supine Sit to Supine Minimal Assistance 1 Person Assistance Bedrails PT-Transfer Assessment Sit to and From Stand Sit to and from Stand Contact Guard Assistance Use of Upper Extremities Equipment Transfer Assistive Device Gait Belt Front Wheeled Walker Orthotic/Prosthetic Devices or Brace: No Transfers Transfer Destination Chair Transfer Ability Level of Assist Contact Guard Assistance 1 Person Assistance Use of Upper Extremities Gait Assessment Gait Gait Assistance Required: Contact Guard Assist Distance (Feet) 60 Able to Maintain Weight Bearing Status Yes During Gait Assistive Devices Assistive Device Front Wheeled Walker Orthotic/Prosthetic Devices or Brace: No Gait Deviations General Gait Pattern Antalgic Decreased Stride Length Decreased Feet Clearance Step-to Gait Factors Limiting Gait Function Factors Limiting Gait Function Decreased Activity Tolerance Decreased Strength Limited Range of Motion Pain Poor Balance M5 PT-IP Objective Assessments Start: 10/06/18 15:20 Freq: NEEDED Status: Active Protocol: Document 10/07/18 09:42 AB (Rec: 10/07/18 11:55 AB [id number]) Orientation Orientation/Cognition Level of Alertness Alert Orientation Name Place Situation Language Function Ability No Deficits Noted Safety Awareness Decreased Safety Awareness Memory Description Short Term Impaired Gross Range of Motion Lower Extremity ROM Assessment Right Impaired Impairments R knee flexion up to 50 degrees R knee extension lacking 20 degrees to neutral Strength Lower Extremity Strength Assessment Bilaterally Impaired Comments Strength Comments RLE 3-/5 LLE: 3+/5 Coordination Assessment Gross Coordination Gross Coordination WNL Sensation Assessment Sensation Gross Sensation WNL Muscle Tone Muscle Tone WNL Yes M6 PT-IP Treatment Start: 10/06/18 15:20 Freq: NEEDED Status: Active Protocol: Document 10/09/18 13:25 GGD (Rec: 10/09/18 13:53 GGD [email or web address]) Physical Therapy Treatment Exercises Exercises Ankle Pumps Quad Sets Heel Slides Seated Knee Flexion/Extension M7 PT-IP Assessment and Plan Start: 10/06/18 15:20 Freq: NEEDED Status: Active Protocol: Document 10/09/18 13:25 GGD (Rec: 10/09/18 13:53 GGD [email or web address]) PT Summary Assessment and Plan Summary Assessment Summary Pt is improving with mobility. She was able to progress gait distance. She did need cues for knee flexion during gait. Frequency of Treatment Frequency Of Treatment Twice a Day Treatment Plan Physical Therapy Treatment Plan Bed Mobility Training Transfer Training Gait Training Therapeutic Exercise Balance Retraining Post Op Education Discharge Planning Hot or Cold Pack Neuromuscular Re-ed Coordination Retraining Manual Therapy Other Recommendations and Next Treatment ambulation Focus Recommendations To Nursing Amount of Assist Needed 1 Person Assist Discharge Recommendations PT Discharge Recommendations SNF Rehab
[2018-10-09 15:00] VITALS: BP 156/80; PULSE 65; RESP 16; TEMP 36.8; O2SAT 97
[2018-10-09] MEDS: POLYETHYLENE GLYCOL 3350 17 GM POWD.PACK PO (16:41)
[2018-10-09 19:00] VITALS: BP 147/71; PULSE 74; RESP 16; TEMP 36.4; O2SAT 97
[2018-10-09] MEDS: DOCUSATE 100 MG CAPSULE PO (20:56)
--- NOTE | 2018-10-09 22:06 | PC.NURSE ---
Evening Shift Note- Patient alert and oriented and able to make needs known to staff. Patient pleasent, calm, and cooperative with care. PRN Percolone given as ordered per patient request for c/o knee pain. Aquacell dressing to right knee c/d/i. Patient requires 1PA w/ walker to ambulate. safety measures in place. bed alarm activated. call thomas and phone within reach. will continue to monitor.
[2018-10-10 00:10] VITALS: BP 140/76; PULSE 68; RESP 16; TEMP 37; O2SAT 95
[2018-10-10] MEDS: OXYCODONE IR 5 MG TABLET PO ×5 (01:40→12:36)
[2018-10-10 05:25] VITALS: BP 160/71; PULSE 68; RESP 16; TEMP 37; O2SAT 95
[2018-10-10] MEDS: LEVOTHYROXINE 125 MCG TABLET PO (05:50)
[2018-10-10 05:59] VITALS: BP 146/79; PULSE 67; RESP 16; TEMP 36.9; O2SAT 99
[2018-10-10] MEDS: ONDANSETRON 4 MG ODT PO (07:47)
[2018-10-10] MEDS: MELOXICAM 7.5 MG TABLET 15 MG PO (07:47)
[2018-10-10] MEDS: ASPIRIN EC 81 MG TABLET PO (07:48)
[2018-10-10] MEDS: ACETAMINOPHEN 325 MG TABLET 975 MG PO (07:48)
[2018-10-10] MEDS: METOPROLOL ER 25 MG TABLET PO (07:48)
[2018-10-10] MEDS: DOCUSATE 100 MG CAPSULE PO (07:51)
[2018-10-10 08:10] VITALS: BP 163/79; PULSE 65; RESP 20; TEMP 37.1; O2SAT 96
--- NOTE | 2018-10-10 09:13 | PM.DS.1 ---
History of Present Illness Date Patient Seen: 10/10/18 Time Patient Seen: 09:13 Chief complaint: Total Knee Arthroplasty [id number] Narrative: Patient is a 68-year-old female this history of knee osteoarthritis status post right total knee arthroplasty with Dr. Vizcaino on 10/06/2017. Patient is stable today. Vital signs are stable. Tolerating p.o. diet. Tolerating p.o. pain medication. Patient was determined appropriate for senior living discharge with physical therapy and occupational therapy. Patient has been selected for [facility] and [place]. Patient does continue to endorse a knee pain and stiffness difficulty mobilizing. The patient has voided. She denies fevers chills nausea vomiting numbness or tingling Discharge Providers Date of admission: 10/06/18 06:10 Discharge Date: 10/10/18 Consults: 10/06/18 11:10 Consult to Discharge Planning Routine Comment: Consult to Physical Therapy Evaluate & Treat Comment: Physician Instructions: postop TKA protocol Consult to Respiratory Therapy Evaluate & Treat Comment: Physician Instructions: Evaluate and treat Discharge provider: Pham Saravia MD Summary Discharge Diagnosis: Right knee arthritis Hospital Course: 68-year-old female admitted following her right total knee arthroplasty. vital signs remained stable. patient was admitted to the floor she was transitioned from IV to oral pain medications. And tolerated a p.o. diet. The patient worked with Physical therapy and Occupational therapy and was felt to be appropriate for senior living at discharge. Status at Discharge Cognitive/behavioral status at discharge: oriented Functional status at discharge: uses cane/walker Overall status at discharge: patient is progressing back to baseline Time Spent with Patient Less than 30 minutes Time spent discussing smoking cessation with patient: 3 to 10 minutes Exam Vital Signs (past 8 hours): - 10/10/18 05:25 10/10/18 05:59 10/10/18 08:10 Temperature 98.6 F 98.5 F 98.8 F Pulse Rate 68 67 65 Respiratory Rate 16 16 20 Blood Pressure 160/71 H 146/79 H 163/79 H Pulse Oximetry 95 99 96 Oxygen Delivery Method Room Air Oxygen Flow Rate 0 Narrative Exam Narrative: General exam: Alert and oriented female in no acute distress sitting at the bedside chair. Vital signs stable afebrile Normocephalic atraumatic Respiratory exam labored on room air lungs clear CV: Regular rate and rhythm Abdomen: Soft nontender, obese Extremities: Right lower extremity with Aquacel in place. No erythema. Mild swelling as to be expected and postoperative. Calf soft. Patient demonstrates 5/5 dorsiflexion plantar flexion sensation grossly intact to light touch. Brisk capillary refill. Objective Labs Result Diagrams: 10/07/18 05:57 Discharge Plan Discharge Plan Patient Disposition: SNF Transfer to: [facility] [place] [facility] Discharge comment: Discharged to snf I certify the postop hospital senior living care is medically necessary on a continuing basis for any conditions for which he/ she received care during this hospitalization.: Yes The receiving facility has agreed to accept transfer and provide medical treatment.: Yes Discharge Med Rec/Prescriptions Prescriptions: New aspirin 81 mg Tablet,Delayed Release (Dr/Ec) 81 mg PO BID Qty: 60 RF: 0 docusate sodium 100 mg Capsule 100 mg PO BID Qty: 30 RF: 1 ondansetron 4 mg Tablet,Disintegrating 4 mg PO Q4HR PRN (Reason: Nausea) Qty: 7 RF: 1 acetaminophen 325 mg Tablet 975 mg PO TID Qty: 30 RF: 1 polyethylene glycol 3350 17 gram Powder In Packet 17 gm PO DAILY PRN (Reason: Constipation) Qty: 7 RF: 1 oxycodone 5 mg tablet 5 - 10 mg PO Q3HR PRN (Reason: Pain, Moderate (4-6)) Qty: 50 RF: 0 Continued meloxicam 7.5 mg Tablet 7.5 mg PO DAILY RF: 0 levothyroxine 125 mcg Tablet 125 mcg PO DAILY RF: 0 metoprolol succinate 25 mg Tablet Extended Release 24 Hr 25 mg PO DAILY RF: 0 hydrocortisone 1 % Cream 1 applic TOPICAL BID RF: 0 Follow up/Referrals: Cali Vizcaino MD [Physician] - (As scheduled 2 weeks postop) Discharge Health Status Brief summary of current health status: 68-year-old female with a history of knee arthritis status post right total knee arthroplasty 10/06/[address] Vizcaino. Patient was initially slow to mobilize on in the hospital and was evaluated by physical therapy occupational therapy and was recommended for senior living at discharge for rehabilitation. On the date of discharge the patient's pain was controlled on oral pain medications patient had voided and tolerating a p.o. diet. Precautions: [place] Provider Discharge Instructions Diet: Diet as Tolerated Food texture: Regular Activity: Weightbearing as tolerated right lower extremity. Knee range of motion. encourage mobilization. Aspirin SCDs and mobilization for DVT prophylaxis Skin/Wound/Dressing Care Report to your healthcare provider any signs of infection, such as:: chills, fever, night sweats, increased pain, unusual drainage and unusual redness Dressing: keep dressing c/d/i until follow up [facility] Reason for rehabilitation: Post-operative therapy Rehab type: Physical therapy Visit Report/Discharge Packet Instructions: DI for Knee Replacement Stand Alone Forms: Surgery Discharge Discharge Data Attending Provider: Cali Vizcaino Admit Date/Time: 10/06/18 06:10 Quality VTE Deep Vein Thrombosis/Pulmonary Embolism Present on Admission: No
--- NOTE | 2018-10-10 09:17 | P.DS_ITS ---
History of Present Illness Date Patient Seen: 10/10/18 Time Patient Seen: 09:13 Chief complaint: Total Knee Arthroplasty [id number] Narrative: Patient is a 68-year-old female this history of knee osteoarthritis status post right total knee arthroplasty with Dr. Vizcaino on 10/06/2017. Patient is stable today. Vital signs are stable. Tolerating p.o. diet. Tolerating p.o. pain medication. Patient was determined appropriate for [facility] discharge with physical therapy and occupational therapy. Patient has been selected for [facility] and [place]. Patient does continue to endorse a knee pain and stiffness difficulty mobilizing. The patient has voided. She denies fevers chills nausea vomiting numbness or tingling Discharge Providers Date of admission: 10/06/18 06:10 Discharge Date: 10/10/18 Consults: 10/06/18 11:10 Consult to Discharge Planning Routine Comment: Consult to Physical Therapy Evaluate & Treat Comment: Physician Instructions: postop TKA protocol Consult to Respiratory Therapy Evaluate & Treat Comment: Physician Instructions: Evaluate and treat Discharge provider: Pham Saravia MD Summary Discharge Diagnosis: Right knee arthritis Hospital Course: 68-year-old female admitted following her right total knee arthroplasty. vital signs remained stable. patient was admitted to the floor she was transitioned from IV to oral pain medications. And tolerated a p.o. diet. The patient worked with Physical therapy and Occupational therapy and was felt to be appropriate for [facility] at discharge. Status at Discharge Cognitive/behavioral status at discharge: oriented Functional status at discharge: uses cane/walker Overall status at discharge: patient is progressing back to baseline Time Spent with Patient Less than 30 minutes Time spent discussing smoking cessation with patient: 3 to 10 minutes Exam Vital Signs (past 8 hours): - 10/10/18 05:25 10/10/18 05:59 10/10/18 08:10 Temperature 98.6 F 98.5 F 98.8 F Pulse Rate 68 67 65 Respiratory Rate 16 16 20 Blood Pressure 160/71 H 146/79 H 163/79 H Pulse Oximetry 95 99 96 Oxygen Delivery Method Room Air Oxygen Flow Rate 0 Narrative Exam Narrative: General exam: Alert and oriented female in no acute distress sitting at the bedside chair. Vital signs stable afebrile Normocephalic atraumatic Respiratory exam labored on room air lungs clear CV: Regular rate and rhythm Abdomen: Soft nontender, obese Extremities: Right lower extremity with Aquacel in place. No erythema. Mild swelling as to be expected and postoperative. Calf soft. Patient demonstrates 5/5 dorsiflexion plantar flexion sensation grossly intact to light touch. Brisk capillary refill. Objective Labs Result Diagrams: 10/07/18 05:57 Discharge Plan Discharge Plan Patient Disposition: SNF Transfer to: [facility], [place] [facility] Discharge comment: Discharged to snf I certify the postop hospital [facility] care is medically necessary on a continuing basis for any conditions for which he/ she received care during this hospitalization.: Yes The receiving facility has agreed to accept transfer and provide medical treatment.: Yes Discharge Med Rec/Prescriptions Prescriptions: New aspirin 81 mg Tablet,Delayed Release (Dr/Ec) 81 mg PO BID Qty: 60 RF: 0 docusate sodium 100 mg Capsule 100 mg PO BID Qty: 30 RF: 1 ondansetron 4 mg Tablet,Disintegrating 4 mg PO Q4HR PRN (Reason: Nausea) Qty: 7 RF: 1 acetaminophen 325 mg Tablet 975 mg PO TID Qty: 30 RF: 1 polyethylene glycol 3350 17 gram Powder In Packet 17 gm PO DAILY PRN (Reason: Constipation) Qty: 7 RF: 1 oxycodone 5 mg tablet 5 - 10 mg PO Q3HR PRN (Reason: Pain, Moderate (4-6)) Qty: 50 RF: 0 Continued meloxicam 7.5 mg Tablet 7.5 mg PO DAILY RF: 0 levothyroxine 125 mcg Tablet 125 mcg PO DAILY RF: 0 metoprolol succinate 25 mg Tablet Extended Release 24 Hr 25 mg PO DAILY RF: 0 hydrocortisone 1 % Cream 1 applic TOPICAL BID RF: 0 Follow up/Referrals: Cali Vizcaino MD [Physician] - (As scheduled 2 weeks postop) Discharge Health Status Brief summary of current health status: 68-year-old female with a history of knee arthritis status post right total knee arthroplasty 10/06/[address] Vizcaino. Patient was initially slow to mobilize on in the hospital and was evaluated by physical therapy occupational therapy and was recommended for [facility] nursing at discharge for rehabilitation. On the date of discharge the patient's pain was controlled on oral pain medications patient had voided and tolerating a p.o. diet. Precautions: [place] Provider Discharge Instructions Diet: Diet as Tolerated Food texture: Regular Activity: Weightbearing as tolerated right lower extremity. Knee range of motion. encourage mobilization. Aspirin SCDs and mobilization for DVT prophylaxis Skin/Wound/Dressing Care Report to your healthcare provider any signs of infection, such as:: chills, fever, night sweats, increased pain, unusual drainage and unusual redness Dressing: keep dressing c/d/i until follow up [facility] Reason for rehabilitation: Post-operative therapy Rehab type: Physical therapy Visit Report/Discharge Packet Instructions: DI for Knee Replacement Stand Alone Forms: Surgery Discharge Discharge Data Attending Provider: Cali Vizcaino Admit Date/Time: 10/06/18 06:10 Quality VTE Deep Vein Thrombosis/Pulmonary Embolism Present on Admission: No
--- NOTE | 2018-10-10 10:24 | PT.IPTN ---
Current Diagnoses Unilateral primary osteoarthritis, right knee (10/06/18) Surgery Performed Operation Date: 10/06/18 07:45 Actual Procedures p Total Knee Arthroplasty(Right) - Cali Vizcaino MD Physical Therapy Treatment Note M2 PT-IP Current Condition Start: 10/06/18 15:20 Freq: NEEDED Status: Active Protocol: Document 10/07/18 09:42 AB (Rec: 10/07/18 11:55 AB [id number]) Physical Therapy Current Condition Current Condition Evaluation Date 10/07/18 Treatment Diagnosis s/p R TKA; difficulty in walking Onset Date 10/06/18 Weight Bearing Status Weight Bearing Status Weight Bear as Tolerated M3 PT-IP Subjective Start: 10/06/18 15:20 Freq: NEEDED Status: Active Protocol: Document 10/10/18 09:20 CLB (Rec: 10/10/18 10:24 CLB [id number]) Subjective Physical Therapy Visit Type Type Treatment Note Visit Start Time 09:20 Visit Stop Time 09:40 Total Visit Minutes 20 Number of SLATER APPRENTICE Visits 3 Physical Therapy Visit Comments Patient Comments Pt willing to do therapy. Therapy Pain Assessment Pain When Pain Assessed At Rest Pain Present Pain Present Pain Reported Location Right Knee Intensity 5 Scale Used Numeric (1 - 10) Pain Behaviors Facial Grimacing [place] Pain Management Techniques Apply Cold Re-positioning Timing of Activity with Medications M4 PT-IP Mobility and Gait Start: 10/06/18 15:20 Freq: NEEDED Status: Active Protocol: Document 10/10/18 09:20 CLB (Rec: 10/10/18 10:24 CLB [id number]) PT-Transfer Assessment Sit to and From Stand Sit to and from Stand Contact Guard Assistance Use of Upper Extremities Equipment Transfer Assistive Device Gait Belt Front Wheeled Walker Orthotic/Prosthetic Devices or Brace: No Transfers Transfer Destination Chair Transfer Ability Level of Assist Contact Guard Assistance 1 Person Assistance Use of Upper Extremities Gait Assessment Gait Gait Assistance Required: Contact Guard Assist Distance (Feet) 60 Able to Maintain Weight Bearing Status Yes During Gait Assistive Devices Assistive Device Gait Belt Front Wheeled Walker Orthotic/Prosthetic Devices or Brace: No Gait Deviations General Gait Pattern Antalgic Decreased Stride Length Decreased Feet Clearance Step-to Gait Factors Limiting Gait Function Factors Limiting Gait Function Decreased Activity Tolerance Decreased Strength Limited Range of Motion Pain Poor Balance M5 PT-IP Objective Assessments Start: 10/06/18 15:20 Freq: NEEDED Status: Active Protocol: Document 10/07/18 09:42 AB (Rec: 10/07/18 11:55 AB [id number]) Orientation Orientation/Cognition Level of Alertness Alert Orientation Name Place Situation Language Function Ability No Deficits Noted Safety Awareness Decreased Safety Awareness Memory Description Short Term Impaired Gross Range of Motion Lower Extremity ROM Assessment Right Impaired Impairments R knee flexion up to 50 degrees R knee extension lacking 20 degrees to neutral Strength Lower Extremity Strength Assessment Bilaterally Impaired Comments Strength Comments RLE 3-/5 LLE: 3+/5 Coordination Assessment Gross Coordination Gross Coordination WNL Sensation Assessment Sensation Gross Sensation WNL Muscle Tone Muscle Tone WNL Yes M6 PT-IP Treatment Start: 10/06/18 15:20 Freq: NEEDED Status: Active Protocol: Document 10/10/18 09:20 CLB (Rec: 10/10/18 10:24 CLB [id number]) Physical Therapy Treatment Exercises Exercises Heel Slides Education Education Provided Precautions Safety M7 PT-IP Assessment and Plan Start: 10/06/18 15:20 Freq: NEEDED Status: Active Protocol: Document 10/10/18 09:20 CLB (Rec: 10/10/18 10:24 CLB [id number]) PT Summary Assessment and Plan Summary Impairments Pain ROM Strength Balance Coordination Sensation Tone Cognition Bed Mobility Transfers Gait Activity Tolerance Assessment Summary Pt ambulates with slow step to gait pattern. Pt requires extra time during gait and needs standing rest breaks. Goals Days to Meet Goals 5 Frequency of Treatment Frequency Of Treatment Twice a Day Treatment Plan Physical Therapy Treatment Plan Bed Mobility Training Transfer Training Gait Training Therapeutic Exercise Balance Retraining Post Op Education Discharge Planning Hot or Cold Pack Neuromuscular Re-ed Coordination Retraining Manual Therapy Other Recommendations and Next Treatment ambulation Focus Recommendations To Nursing Amount of Assist Needed 1 Person Assist Discharge Recommendations PT Discharge Recommendations SNF Rehab
[2018-10-10 11:05] VITALS: BP 179/74; PULSE 62; RESP 18; TEMP 37; O2SAT 95
--- NOTE | 2018-10-10 11:33 | CM.DPC ---
DCP/continued: Reviewed chart. Patient with order to d/c to SNF today. Notes indicate that accepting SNF is [facility]. Placed call [facility]/Virgie she reports that they were planning to accept today. Orders faxed along with PASRR, copy of scripts, and h&p. Per Virgie, patient will be picked up via [facility] at approximately 1:00pm. RN updated. Attempted to meet with patient but she was in the bathroom. Therefore, placed call to patient's daughter/Hillary # [phone] she is aware and agreeable. P: [facility] today. LATA Amezquita
--- NOTE | 2018-10-10 12:17 | PC.NURSE ---
Addendum entered by Lakeshia Santana R.N. 10/10/18 13:40: report given to Lolly at [facility]. all questions answered to satisfaction. Original Note: PATIENT UP TO CHAIR THIS AM AFTER AMBULATING W/ PHYSICAL THERAPY, SHOWERED W/ QUOTE CLERK ASSIST, REMAIN UP IN RECLINER, DRESSED NOW. CONTINUES W/ BORDERLINE PAIN CONTROLLED ABOUT 6/10, BUT DECLINES FURTHER MEDICATION SHE STATES SHE DOESN'T LIKE THE WAY SHE FEELS. BP A LITTLE ELEVATED, SHE AGREES TO TAKE HER NEXT PAIN PILL A LITTLE EARLY, JUST BEFORE SHE TRANSFERS TO [facility] AT 1300. SHE HAS ONLY BEEN ACCEPTING THE 5MG TAB, AND HAS HAD OPTION OF 5MG OR 10MG. CALLED [facility] TO GIVE REPORT. A NURSE WILL CALL ME BACK.
--- NOTE | 2018-10-10 14:35 | CM.DPC ---
DCP Cont: Received a phone call from patient who was crying. She stated, I didn't know I was going to this place, I thought I was going to the one on . She stated, 'I really don't like this place, it seems dirty. Patient was upset, stated, she wanted to go home. Encouraged her to talk to the charge nurse or dining room supervisor, if she was concerned about the facility not being clean. Encouraged her to not go home if she has no one to take care of her. Reminded her that this is temporary, until she can get stronger to go home. Patient stated that her grandaughter is on her way there to see her. Encouraged her to discuss her concerns with her grandaughter when she gets there. Patient left here approximately an hour ago to go to this facility. She also has grandson, Isaias, who she lives with, but also works. She knows that she is there temporarily, but will still discuss this with family. Amanda Og RN/Nail Feeder
== END 2018-10-10 13:10 | DRG 470 ==
LOC: AC 10-10 09:09 → OR 10-11 09:02
PROVIDERS: Admitting Provider Orthopaedic Surgery; Visit Provider Orthopaedic Surgery
PROC: 0SRC0JZ Replacement of Right Knee Joint with Synthetic Substitute, Open Approach (ICD-10-PCS; CPT 27447; principal; 2018-10-06 07:45)
DX: M17.11 Unilateral primary osteoarthritis, right knee (principal); Z68.41 Body mass index [BMI] 40.0-44.9, adult; G47.33 Obstructive sleep apnea (adult) (pediatric); E66.9 Obesity, unspecified; I10 Essential (primary) hypertension; E03.9 Hypothyroidism, unspecified; M21.161 Varus deformity, not elsewhere classified, right knee; M25.561 Pain in right knee
CPT/HCPCS: 36415; 64450; 73560; 85014; 85018; 94760; 97116; 97162; 97530; C1776; C9290; J0690; J1170; J2250; J2405; J2765; J3010

== ENCOUNTER → 2020-06-04 09:10 | Outpatient (CLI) | payer MEDICARE, MEDICAID, SELFPAY ==
[2018-10-06 14:05] VITALS: BMI 37.5
[2020-06-04 10:52] LABS: COVID19 -Nasal RAPID Negative (Negative)
== END ==
PROVIDERS: PCP Family Medicine; Visit Provider Nurse Practitioner
DX: Z20.828 Contact with and (suspected) exposure to other viral communicable diseases (principal)
CPT/HCPCS: 87635; C9803

== ENCOUNTER 2020-06-06 05:57 | Day surgery (SDC) | payer MEDICARE, MEDICAID, SELFPAY ==
[2018-10-06 14:05] VITALS: BMI 37.5
[2020-05-30 09:10] VITALS: BMI 36.6
[2020-06-06] VITALS (23 sets, daily range): BP systolic 105–151; BP diastolic 52–76; PULSE 56–84; RESP 12–18; TEMP 36.1–38.1; O2SAT 92–97; BMI 36.6
--- NOTE | 2020-06-06 06:56 | DI.RAD.S_ITS ---
PROCEDURE: XR KNEE LT 1TO2V INDICATIONS: post operative left knee TECHNIQUE: 2 view(s) of the knee acquired. COMPARISON: [facility], CR, XR KNEE RT 1TO2V, 10/06/2018, 9:57. FINDINGS: Bones: Patient is status post knee joint arthroplasty. Hardware components are in expected positions. Visualized bony structures are intact. Soft tissues: Overlying postoperative changes are noted. IMPRESSION: Postop changes from left total knee arthroplasty with anatomic left knee alignment. Dictated by: Syed Suarez M.D. on 06/06/2020 at 10:16 Approved by: Syed Suarez M.D. on 06/06/2020 at 10:16
[2020-06-06] MEDS: PREGABALIN 75 MG CAPSULE PO (07:11)
[2020-06-06] MEDS: ACETAMINOPHEN 325 MG TABLET 975 MG PO (07:11)
[2020-06-06] MEDS: LACTATED RINGERS 1,000 ML 42 ML IV ×2 (07:11→09:35)
[2020-06-06] MEDS: CELECOXIB 200 MG CAPSULE PO (07:11)
--- NOTE | 2020-06-06 07:50 | P.OP_ITS ---
Operative Date/Time/Diagnoses Date of procedure: 06/06/20 Time of procedure: 09:42 Pre-op diagnosis: Left knee arthritis Post-op diagnosis: same Procedure & Clinicians Procedure: Left total knee arthroplasty Same procedure as scheduled: Yes Indications: The patient presents today for total knee arthroplasty after failure of conservative treatment. The nature of the procedure including the risks and benefits, alternatives, postoperative course and expected outcome were discussed and all questions answered. Consent was obtained. Operative site confirmed and marked. Surgeon: Cali Vizcaino Mold Yard Worker: Jorge Slater Anesthesia Type: General, Spinal and Local Operative Notes Closure Type: primary Specimen(s): none sent Prosthetic devices, grafts, tissues, transplants, or devices: [facility] BCS: 4 femoral component, 3 tibial component, 9 mm BCS polyethylene tray and 32 x 9 mm round patella Applied: implant(s) Estimated Blood Loss (mL): 5 Blood products transfused: none Tourniquet time (min): 54 Procedure in detail: The patient was taken to the operative suite and placed under anesthesia. The patient was given prophylactic antibiotics prior to surgery. The patient was also given tranexamic acid, 1 g, just prior to surgery for postoperative hemostasis. The lateral knee was prepped and the joint injected with 20 mL of 1% Lidocaine with epinephrine. The knee was then prepped and draped in usual sterile fashion. The leg was exsanguinated with an Esmarch dressing and the tourniquet raised to 250 torr. A 15 cm anterior incision was made. Next a medial trivector arthrotomy was made. The extensor mechanism was marked to ensure accurate repair. Initial exposing dissection was carried out medially and laterally. The knee was then flexed and the intramedullary femoral guide tami placed. The distal femoral cut was made in 6? of valgus at the +0 position. The femoral size was measured and the appropriate cutting block was then placed and the anterior, posterior and chamfer cuts made. The intramedullary tibial alignment tami was then placed. The guide was set to remove [id number]] mm from the less affected [lateral side. The proximal tibial cut was then made with an oscillating saw. All meniscus and bony debris was then removed. Posterior femoral osteophytes removed with a curved osteotome. Flexion extension gaps were checked. No specific balancing was required other than routine exposure and removal of osteophytes]. The soft tissues were then injected with a combination of 20 mL of half percent Marcaine with epinephrine and 20 mL of Exparel. The trial components were then placed. The knee was then extended and the patellar thickness was measured and a cut made removing approximately mm of bone. The patella was then sized and drille d. Some excess lateral bone was excised and the patellofemoral ligament released. [The knee went into full extension and flexion beyond 130?. There waexcellent] medial-lateral balance throughout motion. Patellar tracking was [excellent. The trial components were removed and the knee was cleansed with Pulsavac irrigation and dried. The final components were cemented with high viscosity vacuum mixed bone cement with antibiotics. The joint was filled with a dilute Betadine solution. The knee was held in extension and the patellar clamped until the cement was adequately cured. The knee was then irrigated. The extensor mechanism was closed with 5 interrupted #1 Vicryl sutures and a running Quill suture at approximately 90 degrees of flexion. The joint was then injected with a combination of 1 g of tranexamic acid and 20 mL of quarter percent Marcaine with epinephrine. The subcutaneous tissue was closed with 2 0 Vicryl. The skin was closed with absorbable subcuticular sutures and surgical adhesive. AnAquacel dressing] and Faustino wrap were then applied. The patient tolerated the procedure well and was returned to recovery room in good condition. Complications: none Post-operative Condition: stable Disposition: PACU Plan for aftercare: [facility] Protocol.
--- NOTE | 2020-06-06 07:50 | PM.PREOP ---
Pre-operative Note COVID-19 COVID-19 status: Negative Result date/Date tested (Pos, Neg/Pending): 06/04/20 Interval Note History & Physical reviewed/Exam performed by Physician: Yes Changes to H&P: No
[2020-06-06] MEDS: CEFAZOLIN 2 GM/100 ML FROZ.PIGGY IV ×2 (08:10→15:26)
[2020-06-06] MEDS: TRANEXAMIC ACID 1,000 MG VIAL 1000 MG IV (08:15)
[2020-06-06] MEDS: LIDOCAINE 1% W/EPI 20 ML INJ (08:53)
[2020-06-06] MEDS: BUPIVACAINE 0.25% W/ EPI (PF) 40 ML, BUPIVACAINE LIPOSOME 266 MG, SODIUM CHLORIDE 0.9% ... INJ (08:54)
[2020-06-06] MEDS: BUPIVACAINE 0.25% W/ EPI (PF) 20 ML, TRANEXAMIC ACID 1,000 MG, SODIUM CHLORIDE 0.9% 10 ML INJ (08:55)
--- NOTE | 2020-06-06 10:12 | SUR.PHASEI ---
Pt arrived to PACU s/p R knee replacement. VSS. Pt very slow to wake from anesthesia, answers questions but does not open eyes. Denies any pain or nausea. X-rays taken in PACU. Dressing C/D/I. On 2L O2 via NC to keep sats > 90%. R knee elevated on pillows and ice pack placed. Pt appears comfortable and is sleeping. Will continue to monitor.
[2020-06-06] MEDS: LACTATED RINGERS 1,000 ML 100 ML IV ×3 (11:34→21:34)
[2020-06-06] MEDS: ONDANSETRON 4 MG/2 ML INJ IV ×3 (11:42→19:52)
--- NOTE | 2020-06-06 13:03 | PC.NURSE ---
Addendum entered by Beth Navarro R.N. 06/06/20 14:58: @ 1400 pt awoke to nausea and vomited X 2, then immediately went back to sleep. Original Note: Pt transferred to floor from PAC at 11 am with NC @ 3 L, O2 =95%, very somnolent and pt c/o dizziness, VSS, pt instructed to deep breathe, IS 1500; PPP to L foot; SCDs active; Faustino wrap intact; bed alarm active; call light and ice water within reach
[2020-06-06] MEDS: ACETAMINOPHEN 325 MG TABLET 650 MG PO (13:57)
[2020-06-06] MEDS: hydrOXYzine pamoate 25 MG CAPSULE PO (13:58)
--- NOTE | 2020-06-06 15:58 | PT-IP ANOTE ---
PT order received. Per nursing, Pt is not ready for PT d/t nausea and vomiting. Will attempt again tomorrow morning.
[2020-06-06] MEDS: IBUPROFEN 400 MG TABLET PO (17:56)
[2020-06-06] MEDS: BIMATOPROST 0.01% OPHTH 2.5 ML 1 DROPS EYE-BOTH (22:22)
[2020-06-07] MEDS: IBUPROFEN 400 MG TABLET PO ×4 (00:39→12:52)
[2020-06-07] MEDS: CEFAZOLIN 2 GM/100 ML FROZ.PIGGY IV (00:39)
[2020-06-07] MEDS: OXYCODONE IR 5 MG TABLET PO (02:55)
[2020-06-07 05:00] VITALS: BP 143/64; PULSE 66; RESP 18; TEMP 36.6; O2SAT 98
[2020-06-07 05:27] LABS: Hematocrit 36.6 % (36-46); Hemoglobin 12.3 g/dL (12.0-16.0)
[2020-06-07] MEDS: LEVOTHYROXINE 137 MCG TABLET PO (05:34)
[2020-06-07 07:55] VITALS: BP 155/72; PULSE 60; RESP 18; TEMP 36.7; O2SAT 98
[2020-06-07] MEDS: ACETAMINOPHEN 325 MG TABLET 650 MG PO (08:13)
[2020-06-07] MEDS: DOCUSATE 100 MG CAPSULE PO (08:13)
[2020-06-07] MEDS: ASPIRIN EC 81 MG TABLET PO (08:13)
[2020-06-07 08:14] VITALS: BP 155/72
[2020-06-07] MEDS: METOPROLOL ER 25 MG TABLET PO (08:14)
[2020-06-07] MEDS: ATORVASTATIN 20 MG TABLET 40 MG PO (08:14)
--- NOTE | 2020-06-07 08:22 | P.PN_ITS ---
Subjective Subjective Date Patient Seen: 06/07/20 Time Patient Seen: 08:22 Interval history: POD #1 s/p left TKA with Dr. Vizcaino. Her pain is well controlled with oxycodone and Vistaril. She has been up with physical therapy. No complaints today. Exam Vital Signs (past 8 hours): - 06/07/20 05:00 06/07/20 07:55 06/07/20 08:14 Temperature 97.9 F 98.0 F Pulse Rate 66 60 Respiratory Rate 18 18 Blood Pressure 143/64 H 155/72 H 155/72 H Pulse Oximetry 98 98 Oxygen Delivery Method Room Air Oxygen Flow Rate 0 Narrative Exam Narrative: Patient sitting in bedside chair in no acute distress. She is alert orient x3. Calves are soft, compressible, nontender bilaterally. Sen sation intact to light touch throughout bilateral lower extremities. Able to actively dorsiflex and plantar flex. DP 2+ and symmetrical. Objective Labs Result Diagrams: 06/07/20 05:10 Labs: Laboratory Results - last 24 hr 06/07/20 05:10 Hgb 12.3 Hct 36.6 PFSH Medical History (Updated 05/30/20 @ 10:42 by Adriane Ledezma RN) At risk for sleep apnea Eczema Heart murmur HLD (hyperlipidemia) HTN (hypertension) Hypothyroid Kidney stones Lower back pain Moderate aortic stenosis Osteoarthritis Seborrheic keratoses Surgical History (Updated 05/30/20 @ 09:44 by Adriane Ledezma RN) History of arthroplasty of right knee (10/07/18) History of bilateral carpal tunnel release History of bilateral tubal ligation (~1971) History of bladder suspension procedure Hx of appendectomy Hx of cardiac cath Hx of cholecystectomy Hx of dilation and curettage (10/2010) Hx of elbow surgery Hx of hernia repair Hx of tonsillectomy Hx of umbilical hernia repair (2005) S/P right oophorectomy Status post hysteroscopic polypectomy Social History household members: family Smoking Status: Never smoker alcohol intake: never Assessment & Plan Post-op Postoperative Procedures: Procedures Operation Date: 06/06/20 07:45 Actual Procedures Side Surgeon p Total Knee Arthroplasty Left Cali Vizcaino MD Patient will mobilize with physical therapy today. Continue current pain control. ASA for DVT prophylaxis. Anticipate discharge home today. Quality VTE Deep Vein Thrombosis/Pulmonary Embolism Present on Admission: No
--- NOTE | 2020-06-07 09:29 | CM.DANOTE ---
DCP: Case received, EMR reviewed and met with patient. Introduced self and role. Was able to obtain information from patient regarding her baseline activity level at home prior to surgery, as well as her current living situation. DCP assessment completed with information currently available. Patient is a 70 year old female who was admitted yesterday morning to the care of the orthopedic team. PCP: Dr. Lawson. Payer: confirmed: Medicare/Medicaid. Patient came to the hospital via private vehicle for a surgical procedure. She had left total knee arthroplasty. Patient has history of osteoarthritis of her left knee, and she had right knee surgery in September of 2018. Met with patient in her room. She is alert and oriented, she was sitting up in her chair. Patient resides in [place], and she stated that her grand son, Isaias Cruz, will be assisting her as needed. Patient is independent at baseline, this is her second surgery. She stated that she uses no DME devices. P: Patient is to be discharged home today with outpatient P.T. She will be working with P.T. before she goes home. Amanda Og RN/Manager [employer]
--- NOTE | 2020-06-07 10:20 | PT.IIE ---
Current Diagnoses Unilateral primary osteoarthritis, left knee (06/06/20) Surgery Performed Operation Date: 06/06/20 07:45 Actual Procedures p Total Knee Arthroplasty(Left) - Cali Vizcaino MD Surgical History (Last Updated 05/30/20 @ 09:44 by Adriane Ledezma, RN) History of arthroplasty of right knee (10/07/18) History of bilateral carpal tunnel release History of bilateral tubal ligation (~1971) History of bladder suspension procedure Hx of appendectomy Hx of cardiac cath Hx of cholecystectomy Hx of dilation and curettage (10/2010) Hx of elbow surgery Hx of hernia repair Hx of tonsillectomy Hx of umbilical hernia repair (2005) S/P right oophorectomy Status post hysteroscopic polypectomy Medical History (Last Updated 05/30/20 @ 10:42 by Adriane Ledezma RN) At risk for sleep apnea Eczema Heart murmur HLD (hyperlipidemia) HTN (hypertension) Hypothyroid Kidney stones Lower back pain Moderate aortic stenosis Osteoarthritis Seborrheic keratoses Physical Therapy Inpatient Evaluation/Re-Eval M1 PT/OT-IP Prior Functional Status Start: 06/06/20 14:55 Freq: NEEDED Status: Active Protocol: Document 06/07/20 10:06 (Rec: 06/07/20 10:20 [id number]) Medical Review Prior Functional Status Medical History Reviewed Yes Diet/Fluid Consistency Regular Communication no deficits noted. Mobility and Gait able to amb without AD at home and community. But only tolerate a block of walking before rest d/t pain. Activities of Daily Living and IADL's IND for ADLs and IADLs. Pt also drives. Prior Functional Level (Other details) right knee surgery in September Social History Household Members family Living Arrangements Apartment/Condo Number of Floors (Floors) One Floor Number of Stairs To Enter/Railing? level entry Home Environment Standard Height Toilet,Tub/ Shower Home Equipment Front Wheel Walker,Straight Cane,Raised Toilet Seat Without Armrests,Shower Seat without Backrest,[employer] Internet Sales Manager Employment Status Retired Additional Social History Comment Pt lives with her 21 yo grandson in [place]. He works time checker from 6am to 530pm x5 /week. He will be able to assist as needed during night time. Grandson ' gf will be also avaliable as needed M2 PT-IP Current Condition Start: 06/06/20 14:55 Freq: NEEDED Status: Active Protocol: Document 06/07/20 10:06 (Rec: 06/07/20 10:20 [email or web address]) Physical Therapy Current Condition Current Condition Evaluation Date 06/07/20 Treatment Diagnosis L TKA, difficulty in walking Onset Date 06/06/20 Weight Bearing Status Weight Bearing Status Weight Bear as Tolerated M3 PT-IP Subjective Start: 06/06/20 14:55 Freq: NEEDED Status: Active Protocol: Document 06/07/20 10:06 (Rec: 06/07/20 10:20 [email or web address]) Subjective Physical Therapy Visit Type Type Initial Evaluation Visit Start Time 08:43 Visit Stop Time 09:00 Total Visit Minutes 27 Number of VISITING HOUSEKEEPER Visits 0 Physical Therapy Visit Comments Patient Comments IM ready to go home Therapy Pain Assessment Pain When Pain Assessed During Mobility Pain Present Pain Present Pain Reported Location Right Knee Intensity 6 Scale Used Numeric (0 - 10) Description Aching,Acute,With Movement Pain Management Techniques Apply Cold,Timing of Activity with Medications M4 PT-IP Mobility and Gait Start: 06/06/20 14:55 Freq: NEEDED Status: Active Protocol: Document 06/07/20 10:06 (Rec: 06/07/20 10:20 [email or web address]) PT-Transfer Assessment Sit to and From Stand Sit to and from Stand Standby Assistance,1 Person Assistance,Use of Upper Extremities Equipment Transfer Assistive Device Bed Rail,Front Wheeled Walker Orthotic/Prosthetic Devices or Brace: No Transfers Transfer Destination Chair Transfer Technique Stand Step Pivot Transfer Ability Level of Assist Standby Assistance,1 Person Assistance,Use of Upper Extremities Comments Mobility Comments pt was sitting in chair upon PT arrival. Pain at 4/10. BP 130/62. She agreeable to mobilize PT. Pt was able to stand up by pushing off from armrests with staggered stance . She then amb from her room to hallway approx 120 ft then returned. She amb with a step to pattern but steady for the first half. Pt then reported increase in knee pain and requested to return to room. She then began to show increase antalgic sign and needed 2 quick stops ~10 secs d/t pain. She did walk back to her chair and no signs of LOB . Pt transferred herself safely to chair with stand step pivot, followed by good descend. BP at 130/68. call light placed within reach. Gait Assessment Gait Gait Assistance Required: Standby Assistance Distance (Feet) 120 Able to Maintain Weight Bearing Status Yes During Gait Assistive Devices Assistive Device Gait Belt,Front Wheeled Walker Orthotic/Prosthetic Devices or Brace: No Gait Deviations General Gait Pattern Antalgic,Decreased Stride Length,Decreased Feet Clearance,Step-to Gait Factors Limiting Gait Function Factors Limiting Gait Function Decreased Activity Tolerance, Decreased Strength,Limited Range of Motion,Pain,Poor Balance Comments Gait Comments see mobility comments. Stair Climbing Assessment Comments Stair Climbing Comments she has not steps to enter PT-Balance Assessment Sitting Balance and Reactions Static Sitting Balance Ability Normal Dynamic Sitting Balance Ability Normal Standing Balance and Reactions Static Standing Balance Ability Good Dynamic Standing Balance Ability Good Device Used FWW M5 PT-IP Objective Assessments Start: 06/06/20 14:55 Freq: NEEDED Status: Active Protocol: Document 06/07/20 10:06 (Rec: 06/07/20 10:20 [email or web address]) Orientation Orientation/Cognition Level of Alertness Alert Orientation Name,Age,Birthday,Month,Date, Year,Day of Week,Place, Situation Language Function Ability No Deficits Noted Safety Awareness Understands Safety Issues Memory Description No Deficits Noted Gross Range of Motion Upper Extremity ROM Assessment Within Functional Limits Lower Extremity ROM Assessment Left Impaired Impairments knee AROM ~5 -85 Strength Upper Extremity Strength Assessment Within Functional Limits Lower Extremity Strength Assessment Left Impaired Coordination Assessment Gross Coordination Gross Coordination WNL Sensation Assessment Sensation Gross Sensation WNL Muscle Tone Muscle Tone WNL Yes M6 PT-IP Treatment Start: 06/06/20 14:55 Freq: NEEDED Status: Active Protocol: Document 06/07/20 10:06 (Rec: 06/07/20 10:20 [email or web address]) Physical Therapy Treatment Exercises Exercises Ankle Pumps,Gluteal Sets,Quad Sets,Heel Slides Education Education Provided Precautions,Weight Bearing Status,Post-Op Packet,Safety M7 PT-IP Assessment and Plan Start: 06/06/20 14:55 Freq: NEEDED Status: Active Protocol: Document 06/07/20 10:06 (Rec: 06/07/20 10:20 [email or web address]) PT Summary Assessment and Plan Potential Rehabilitation Potential Excellent Status of Condition at Evaluation Stable Summary Impairments Pain,ROM,Strength,Balance,Bed Mobility,Transfers,Gait, Activity Tolerance Progress Towards Goals Safe For Discharge Assessment Summary Pt is 70yo female s/p POD1 LTKA. PLOF= IND for mobility at home and community without AD, but limited amb distance d /t pain. IND for all ADLs and IADLs. CLOF= SBA for all bed mobility and ambulation with walker. Although pt has increased knee pain after amb, pt was steady and good safety awareness. She is safe to go home at this point with grandson and his GF assistance . Pt will participate outpatient PT to improve her mobility and strength. Frequency of Treatment Frequency Of Treatment Discharge Recommendations To Nursing Amount of Assist Needed 1 Person Assist Discharge Recommendations PT Discharge Recommendations Home with Assistance, Outpatient PT Transportation Needs at Discharge Private Vehicle
--- NOTE | 2020-06-07 10:39 | PC.NURSE ---
Pt is dressed and ready for discharge home with her grandson who she lives with. HL has been removed. Pt has been cleared by P.T. and will go home as soon as her grandson gets here. Went over d/c instructions with Pt - discussed d/c meds, time of last dose, reviewed stroke education, s/s of infection and when to call MD, showering, leaving drsg in place until follow up, icing, and follow up. Encouraged Pt to drink plenty of fluids to prevent constipation and no driving while taking narcotics. Pt denies further questions and will be taken out via w/c by [employer]ER to POV with all belongings.
== END 2020-06-07 13:49 | disposition home or self-care (01) ==
LOC: OR 09:46 → AC 10:20
PROVIDERS: PCP Family Medicine; Referring Provider Orthopaedic Surgery; Visit Provider Orthopaedic Surgery
PROC: 0SRD0JZ Replacement of Left Knee Joint with Synthetic Substitute, Open Approach (ICD-10-PCS; CPT 27447; principal; 2020-06-06 07:45)
DX: M17.12 Unilateral primary osteoarthritis, left knee (principal); I10 Essential (primary) hypertension; E03.9 Hypothyroidism, unspecified; E66.9 Obesity, unspecified; Z68.37 Body mass index [BMI] 37.0-37.9, adult
CPT/HCPCS: 27447; 36415; 73560; 85014; 85018; 94760; 97161; C1776; C9290; J0690; J1100; J2274; J2405; J2704

== ENCOUNTER → 2021-01-09 11:58 | Outpatient (CLI) | payer MEDICARE, MEDICAID, SELFPAY ==
[2020-06-06 11:37] VITALS: BMI 36.6
[2021-01-09 12:49] LABS: Alanine Aminotransferase 21 IU/L (<35); Albumin 4.4 g/dL (3.5-5.0); Albumin Globulin Ratio 1.1 (1.0-2.8); Alkaline Phosphatase 103 U/L (38-126); Aspartate Aminotransferase 29 IU/L (14-36); Bilirubin Total 0.7 mg/dL (0.2-1.3); Blood Urea Nitrogen 13 mg/dL (7-17); Calcium 10.6 mg/dL (8.4-10.2); Carbon Dioxide 26 mmol/L (22-32); Chloride 106 mmol/L (98-107); Estimated Glomerular Filt Rate > 60.0 mL/min (>60); Globulin 4.1 g/dL (1.7-4.1); Glucose 111 mg/dL (80-110); HEMOLYSIS < 15 (0-50); Lipase 110 U/L (23-300); Potassium 3.6 mmol/L (3.4-5.1); Sodium 139 mmol/L (137-145); Total Protein 8.5 g/dL (6.3-8.2)
[2021-01-09 12:54] LABS: Add Manual Diff / Slide Review NO; Basophils Absolute Auto 100 /uL (0-100); Basophils Percent Auto 0.8 % (0-2); Eosinophils Absolute Auto 100 /uL (0-450); Eosinophils Percent Auto 1.3 % (2-4); Hematocrit 41.4 % (36-46); Hemoglobin 14.3 g/dL (12.0-16.0); Lymphocytes Absolute Auto 3200 /uL (1100-4500); Lymphocytes Percent Auto 30.3 % (25-40); Mean Corpuscular HGB Conc 34.6 % (30-36); Mean Corpuscular Hemoglobin 30.8 PG (26-34); Mean Corpuscular Volume 89.1 fL (80-100); Monocytes Absolute Auto 700 /uL (0-900); Monocytes Percent Auto 6.4 % (3-14); Neutrophils Absolute Auto 6400 /uL (1500-7000); Neutrophils Percent Auto 61.2 % (50-75); Platelet Count 220 X10^3/uL (150-400); Red Blood Cell Count 4.65 X10^6/uL (4.0-5.2); Red Cell Distribution Width 13.1 % (11.6-14.8); White Blood Cell Count 10.4 X10^3/uL (4.5-11.0)
== END ==
PROVIDERS: PCP General Practice; Referring Provider Physician Assistant; Visit Provider Physician Assistant
DX: N34.3 Urethral syndrome, unspecified (principal); R10.31 Right lower quadrant pain
CPT/HCPCS: 36415; 80053; 83690; 85025; 87086

== ENCOUNTER → 2021-01-09 12:30 | Outpatient (CLI) | payer MEDICARE, MEDICAID, SELFPAY ==
[2020-06-06 11:37] VITALS: BMI 36.6
--- NOTE | 2021-01-09 12:31 | DI.CT.S_ITS ---
PROCEDURE: CT ABDOMEN PELVIS W CON INDICATIONS: RLQ cramping intermittent pain, s/p appe, R oophrectomy TECHNIQUE: After the administration of intravenous contrast, axial sections acquired from the lung bases to the pubic symphysis. Coronal and sagittal reformats were performed. For radiation dose reduction, the following was used: automated exposure control, adjustment of mA and/or kV according to patient size. COMPARISON: None. FINDINGS: ABDOMEN: Lung bases: Normal. Heart: No significant findings. Liver: Normal. Gallbladder: Surgically absent. Bile ducts: Extrahepatic bile ducts mildly enlarged although this could be related to prior cholecystectomy. Pancreas: Normal. Spleen: Normal. Adrenals: Normal. Kidneys and Ureters: Normal. Stomach and duodenum: Normal. Bowel: Short segment mural thickening involving the sigmoid colon on the right image 67/2. There is mild adjacent inflammatory stranding. There are numerous colonic diverticula. Other: No free fluid or air. Abdominal nodes: Normal. Aorta and IVC: Normal in size. Ventral wall: Postsurgical changes involving the right anterior abdominal wall. PELVIS: Bladder: Normal. Inguinal region: No hernia. Pelvic nodes: Normal. Bones: Spondylytic changes and facet arthropathy. No vertebral body compression fracture. IMPRESSION: Numerous colonic diverticula with short segment sigmoid colonic mural thickening and mild adjacent inflammatory stranding, probably reflecting acute diverticulitis. Endoscopic follow-up to exclude colonic malignancy could be performed when appropriate, if there is clinical suspicion or based on screening criteria. Dictated by: Javed Cole M.D. on 01/09/2021 at 13:59 Approved by: Javed Cole M.D. on 01/09/2021 at 14:06
== END ==
PROVIDERS: PCP General Practice; Referring Provider Physician Assistant; Visit Provider Physician Assistant
DX: R10.31 Right lower quadrant pain (principal); K57.30 Diverticulosis of large intestine without perforation or abscess without bleeding; N34.3 Urethral syndrome, unspecified; Z90.49 Acquired absence of other specified parts of digestive tract
CPT/HCPCS: 36415; 74177; 80053; 83690; 85025; 87086; Q9967

== ENCOUNTER → 2021-01-31 11:42 | Outpatient (CLI) | payer MEDICARE, MEDICAID, SELFPAY ==
[2020-06-06 11:37] VITALS: BMI 36.6
== END ==
PROVIDERS: PCP General Practice; Referring Provider Nurse Practitioner; Visit Provider Nurse Practitioner
DX: L02.91 Cutaneous abscess, unspecified (principal)
CPT/HCPCS: 87070; 87205

== ENCOUNTER 2022-02-03 14:32 | Emergency (ER) | payer OTHER, SELFPAY ==
[2020-06-06 11:37] VITALS: BMI 36.6
[2022-02-03] VITALS (12 sets, daily range): BP systolic 154–181; BP diastolic 58–98; PULSE 60–74; RESP 20; TEMP 36.5; O2SAT 89–98
--- NOTE | 2022-02-03 14:51 | ED.ABDPAIN ---
HPI - Abdominal Pain General Chief Complaint: Abdominal Pain Stated Complaint: Herniated lower right abd Time Seen by Provider: 02/03/22 14:49 Source: patient Mode of arrival: Ambulatory History of Present Illness HPI narrative: 71-year-old female nonsmoker with history of hypertension, hypothyroid and prior abdominal surgeries presents with severe, worsening central and right lower quadrant pain over the past 2 weeks or so. She states that she had been seen about 1 month ago at another facility and had an ultrasound that was concerning for strangulated versus incarcerated hernia and was then sent to [facility] and had a CT with IV contrast of her pelvis that suggested strangulated hernia. She had been put in touch with a surgeon and apparently is set to see that surgeon in about 1 week. She presents today because of increasing pain. She last ate this morning but is significantly nauseated and has a poor appetite. She has not had a bowel movement in a few days and is no longer passing gas Related Data Home Medications Medication Instructions Recorded Confirmed hydrocortisone 1 % topical cream 1 applic topical BID Eczema 09/27/18 01/09/21 levothyroxine 125 mcg tablet 137 mcg PO DAILY 09/27/18 01/09/21 meloxicam 7.5 mg tablet 7.5 mg PO DAILY 09/27/18 01/09/21 metoprolol succinate 25 mg 25 mg PO DAILY 09/27/18 01/09/21 tablet,extended release 24 hr acetaminophen 325 mg tablet 500 mg PO DAILY PRN Pain 05/30/20 01/09/21 bimatoprost 0.01 % eye drops 1 drp EYE-BOTH BEDTIME 05/30/20 01/09/21 (Keerthi) ketoconazole 2 % topical cream 1 applic topical BID PRN Eczema 05/30/20 01/09/21 hydrochlorothiazide 12.5 mg capsule 12.5 mg PO DAILY 01/31/21 01/31/21 Previous Rx's Medication Instructions Recorded aspirin 81 mg tablet,delayed 81 mg PO BID #0 tabs 06/07/20 release docusate sodium 100 mg capsule 100 mg PO BID #30 caps 06/07/20 (DOK) hydroxyzine pamoate 25 mg capsule 25 mg PO Q6HR PRN Nausea #30 caps 06/07/20 ibuprofen 400 mg tablet 400 mg PO Q4HR #20 tabs 06/07/20 hydrocodone 5 mg-acetaminophen 325 1 tab PO Q4-6H PRN pain #20 tabs 02/03/22 mg tablet ondansetron 4 mg disintegrating 4 mg PO TID-QID PRN nausea and 02/03/22 tablet vomiting #10 tabs Allergies Allergy/AdvReac Type Severity Reaction Status Date / Time morphine AdvReac Severe Shortness Verified 01/31/21 10:54 of breath, tachycardia Review of Systems Review of Systems Narrative: GENERAL: Denies chills, fatigue, malaise, fever, sweats. HEENT: Denies sinus pain, ear pain, sore throat, difficulty swallowing, dizziness. RESPIRATORY: Denies dyspnea, cough, wheezing, hemoptysis, sputum. CARDIOVASCULAR: Denies chest pain, palpitations, orthopnea, edema, GASTROINTESTINAL: See HPI : Denies dysuria, frequency, incontinence, hematuria, urinary retention. MUSCULOSKELETAL: denies weakness, joint pain, or bony pain SKIN: Denies rash, skin lesions, or other NEUROLOGIC: Denies weakness, headache, numbness, change in speech, confusion, seizures, incoordination. PSYCHIATRIC: No concerning psychosocial issues. 12 point review of systems is negative except for those stated above Patient History Medical History At risk for sleep apnea Eczema Heart murmur HLD (hyperlipidemia) HTN (hypertension) Hypothyroid Kidney stones Lower back pain Moderate aortic stenosis Osteoarthritis Seborrheic keratoses Surgical History History of arthroplasty of right knee (10/07/18) History of bilateral carpal tunnel release History of bilateral tubal ligation (~1971) History of bladder suspension procedure Hx of appendectomy Hx of cardiac cath Hx of cholecystectomy Hx of dilation and curettage (10/2010) Hx of elbow surgery Hx of hernia repair Hx of tonsillectomy Hx of umbilical hernia repair (2005) S/P right oophorectomy Status post hysteroscopic polypectomy Social History household members: family Smoking Status: Never smoker alcohol intake: never Smoking Status: Never smoker Substance Use Type: does not use Exam Narrative Exam Narrative: GENERAL: [71] year old patient appears stated age. Well-developed patient, in mild distress. HEAD: Atraumatic. Normocephalic. EYES: Pupils equal round and reactive. Extraocular motions intact. No scleral icterus. No injection or drainage. ENT: Nose without bleeding, purulent drainage. Throat without erythema, tonsillar hypertrophy or exudate. Airway patent. NECK: Trachea midline. Non tender CARDIOVASCULAR: Regular rate and rhythm without murmurs, gallops, or rubs. RESPIRATORY: Clear to auscultation. Breath sounds equal bilaterally. No wheezes, rales, or rhonchi. GASTROINTESTINAL: Abdomen soft, significantly tender with non reducible ventral hernia. Bowel sounds present but decreased EXTREMITIES: No edema or joint tenderness. BACK: Nontender without deformity or crepitance. No flank tenderness. NEURO: AOx3. SKIN: No rash or erythema of visible areas Initial Vital Signs Initial Vital Signs: Vital Signs Temperature 97.7 F 02/03/22 14:35 Pulse Rate 74 02/03/22 14:35 Respiratory Rate 20 02/03/22 14:35 Pulse Oximetry 96 02/03/22 14:35 Oxygen Delivery Method 02/03/22 14:35 Course Orders Ordered: ED Orders 02/03/22 14:46 EKG-12 Lead Stat 02/03/22 15:00 CT abdomen pelvis w con Stat 02/03/22 15:04 COVID19 -Nasal RAPID/Pre-Proc Stat Complete Blood Count AUTO DIFF Stat Comprehensive Metabolic Panel Stat Lactate (Lactic Acid) Stat Lipase Stat 02/03/22 16:20 Blood Culture Stat Discontinued Medications Hydromorphone HCl (Hydromorphone 0.5 Mg Inj) 0.5 mg IV NOW ONE Stop: 02/03/22 15:00 Last Admin: 02/03/22 15:13 Dose: 0.4 mg Documented By: VANNESSA Sodium Chloride (Normal Saline 0.9%) 1,000 mls @ 1,000 mls/hr IV BOLUS ONE Stop: 02/03/22 15:58 Last Infusion: 02/03/22 17:21 Dose: 0 mls/hr Documented By: Admin: 02/03/22 15:13 Dose: 1,000 mls/hr Documented By: BS Ondansetron HCl (Ondansetron 4 Mg/2 Ml Inj) 4 mg IV NOW ONE Stop: 02/03/22 15:19 Last Admin: 02/03/22 15:22 Dose: 4 mg Documented By: BS Reevaluation(s) Reevaluation #1: discussed with director of curriculum and instruction general surgery (Michel), recommends keeping patient NPO, COVID swab, fluids, repeat imaging Reevaluation #2: repeat discussion after CT, no bowel in hernia. No surgical indications, just pain control, return precautions and follow up with her surgeon Vital Signs Vital signs: Vital Signs - 8 hr 02/03/22 14:35 02/03/22 15:17 02/03/22 15:23 Temperature 97.7 F Pulse Rate 74 70 66 Respiratory Rate 20 Blood Pressure Pulse Oximetry 96 97 98 Oxygen Delivery Method Room Air 02/03/22 15:23 02/03/22 15:30 02/03/22 15:30 Temperature Pulse Rate 72 Respiratory Rate Blood Pressure 170/77 H 162/72 H Pulse Oximetry 95 Oxygen Delivery Method 02/03/22 15:57 02/03/22 15:57 02/03/22 16:00 Temperature Pulse Rate 62 Respiratory Rate Blood Pressure 181/98 H 167/70 H Pulse Oximetry 97 Oxygen Delivery Method 02/03/22 16:00 02/03/22 16:30 02/03/22 16:31 Temperature Pulse Rate 65 63 62 Respiratory Rate Blood Pressure Pulse Oximetry 89 L 89 L 93 Oxygen Delivery Method 02/03/22 16:31 02/03/22 17:00 02/03/22 17:01 Temperature Pulse Rate 61 60 Respiratory Rate Blood Pressure 165/71 H Pulse Oximetry 94 94 Oxygen Delivery Method 02/03/22 17:01 02/03/22 17:30 02/03/22 17:31 Temperature Pulse Rate 66 65 Respiratory Rate Blood Pressure 159/70 H Pulse Oximetry 95 97 Oxygen Delivery Method 02/03/22 17:31 Temperature Pulse Rate Respiratory Rate Blood Pressure 154/58 H Pulse Oximetry Oxygen Delivery Method MDM - Abdominal Pain Lab Data Result diagrams: 02/03/22 15:04 02/03/22 15:04 Labs: Lab Results 02/03/22 02/03/22 02/03/22 Range/Units 15:04 15:04 15:04 WBC 8.6 (4.5-11.0) X10^3/uL RBC 4.20 (4.0-5.2) X10^6/uL Hgb 13.4 (12.0-16.0) g/dL Hct 37.9 (36-46) % MCV 90.3 (80-100) fL MCH 31.9 (26-34) PG MCHC 35.4 (30-36) % RDW 13.8 (11.6-14.8) % Plt Count 208 (150-400) X10^3/uL Neut % (Auto) 48.5 L (50-75) % Lymph % (Auto) 39.5 (25-40) % Callahan % (Auto) 8.2 (3-14) % Eos % (Auto) 2.6 (2-4) % Baso % (Auto) 1.2 (0-2) % Neut # (Auto) 4200 (3199-1230) /uL Lymph # (Auto) 3400 (9867-6118) /uL Callahan # (Auto) 700 (0-900) /uL Eos # (Auto) 200 (0-450) /uL Baso # (Auto) 100 (0-100) /uL Sodium 143 (137-145) mmol/L Potassium 3.6 (3.4-5.1) mmol/L Chloride 107 (98-107) mmol/L Carbon Dioxide 27 (22-32) mmol/L BUN 16 (7-17) mg/dL Creatinine 0.68 (0.52-1.04) mg/dL Estimated GFR > 60 (>60) mL/min BUN/Creatinine Ratio 23.5 H (6-22) Glucose 121 H (80-110) mg/dL Lactate 1.1 (0.7-2.1) mmol/L Calcium 9.9 (8.4-10.2) mg/dL Total Bilirubin 0.6 (0.2-1.3) mg/dL AST 30 (14-36) IU/L ALT 28 (<35) IU/L Alkaline Phosphatase 101 (38-126) U/L Total Protein 8.2 (6.3-8.2) g/dL Albumin 4.3 (3.5-5.0) g/dL Globulin 3.9 (1.7-4.1) g/dL Albumin/Globulin Ratio 1.1 (1.0-2.8) Lipase 133 (23-300) U/L SARS-CoV-2 (PCR) (Negative) 02/03/22 Range/Units 15:04 WBC (4.5-11.0) X10^3/uL RBC (4.0-5.2) X10^6/uL Hgb (12.0-16.0) g/dL Hct (36-46) % MCV (80-100) fL MCH (26-34) PG MCHC (30-36) % RDW (11.6-14.8) % Plt Count (150-400) X10^3/uL Neut % (Auto) (50-75) % Lymph % (Auto) (25-40) % Callahan % (Auto) (3-14) % Eos % (Auto) (2-4) % Baso % (Auto) (0-2) % Neut # (Auto) (1456-4983) /uL Lymph # (Auto) (3097-7221) /uL Callahan # (Auto) (0-900) /uL Eos # (Auto) (0-450) /uL Baso # (Auto) (0-100) /uL Sodium (137-145) mmol/L Potassium (3.4-5.1) mmol/L Chloride (98-107) mmol/L Carbon Dioxide (22-32) mmol/L BUN (7-17) mg/dL Creatinine (0.52-1.04) mg/dL Estimated GFR (>60) mL/min BUN/Creatinine Ratio (6-22) Glucose (80-110) mg/dL Lactate (0.7-2.1) mmol/L Calcium (8.4-10.2) mg/dL Total Bilirubin (0.2-1.3) mg/dL AST (14-36) IU/L ALT (<35) IU/L Alkaline Phosphatase (38-126) U/L Total Protein (6.3-8.2) g/dL Albumin (3.5-5.0) g/dL Globulin (1.7-4.1) g/dL Albumin/Globulin Ratio (1.0-2.8) Lipase (23-300) U/L SARS-CoV-2 (PCR) Negative (Negative) Point of care testing: Urine Dip Bedside Urine Glucose Negative Bedside Urine Bilirubin - Negative Bedside Urine Ketone - Negative Urine Specific [place] 1.015 Bedside Urine Occult Blood - Negative Bedside Urine pH 6 Bedside Urine Protein - Negative Bedside Urine Urobilinogen - Negative Bedside Urine Nitrite - Negative Bedside Urine Leukocytes - Negative Esterase Imaging Data CT scan - abdomen/pelvis: Radiologist's Impression: Close Abdomen/Pelvis CT (Signed) Jovi Rutherford - 02/03/22 Abdomen/Pelvis CT (Signed) Javed Cole - 01/09/21 Knee X-Ray (Signed) Syed Suarez - 06/06/20 Outside EKG 08/23/19 Outside DI 08/15/19 Outside Stress Test 08/13/19 Outside Echo 08/10/19 Outside EKG 08/09/19 Outside EKG 08/09/19 Outside EKG 06/27/19 Telemetry Strips 10/07/18 Knee X-Ray (Signed) Marlon Bocanegra - 10/06/18 Outside EKG 09/16/18 Knee MRI (Signed) Barry Fiore - 09/03/18 Launch?[place] [address] CT Scan Report Signed Patient: Irma Navarro MR#: [id number] : 1950 Acct:[id number] Age/Sex: 71 / F Date of Service: 02/03/22 Loc: ED Accession Number: [id number] ?? Procedure: CT abdomen pelvis w con Ordering Provider: Richardson Mc D.O. PROCEDURE:? CT ABDOMEN PELVIS W CON ? INDICATIONS:? incarcerated hernia ? TECHNIQUE:? After the administration of intravenous contrast, axial sections acquired from the lung bases to the pubic symphysis.? Coronal and sagittal reformats were performed.? For radiation dose reduction, the following was used:? automated exposure control, adjustment of mA and/or kV according to patient size.? ? COMPARISON:? [facility], CT, CT ABDOMEN PELVIS W CON, 01/09/2021, 13:11. ? FINDINGS:? Image quality:? Excellent.? ? Lung bases:? Unremarkable. Heart:? No significant findings. ? ABDOMEN: Liver:? Unremarkable.? ? Gallbladder:? Surgically absent.? ? Biliary ducts:? Chronically dilated post cholecystectomy.? No obstructing pancreatic mass.? ? Pancreas:? Unremarkable.? ? Spleen:? Unremarkable.? ? Adrenal Glands:? Unremarkable.? ? Kidneys and Ureters:? Unremarkable.? ? ? Stomach and Bowel:? Relatively advanced sigmoid diverticulosis without evidence of diverticulitis. Peritoneum:? No abnormal intraperitoneal fluid.? No free air.? ? Ventral Wall: ? Small right paramidline ventral hernia in the pelvis containing fat, with significant inflammatory change in the fat.? Consider incarcerated ventral hernia containing ischemic fat versus acute appendagitis which happens to be in a ventral hernia.? Abdominal Nodes:? No retroperitoneal or mesenteric adenopathy by size criteria.? Vessels:? Aorta and inferior vena cava are normal in size.? ? PELVIS: Pelvic Organs:? Unremarkable.? ? Bladder:? Unremarkable.? ? Pelvic Nodes: No enlarged lymph nodes.? Miscellaneous: No hernias are seen. ? ? ? Bones:? Lumbar degenerative change.? No lytic or blastic bony lesions.? No compression fractures.? At L3-L4, a peripherally calcified disc herniation contributes to canal stenosis. ? ? ? IMPRESSION:? ? 1. There is significantly inflamed fat present within a right paramidline anterior pelvic ventral hernia.? Consider incarcerated/strangulated fat versus acute appendagitis would simply occurs within a ventral abdominal wall defect. ? 2. Sigmoid diverticulosis. ? 3. Lumbar degenerative change.? A calcified disc protrusion at L3-L4 contributes to canal stenosis.? ? ? Dictated by: Jovi Rutherford M.D. on 02/03/2022 at 16:10 ? ? Approved by: Jovi Rutherford M.D. on 02/03/2022 at 16:15 ? Discharge Plan Departure Patient Disposition: Home Clinical Impression: Ventral hernia Instructions: DI for Hernia Repair Activity Restrictions/Additional Instructions: *You have been diagnosed with [ventral hernia. As we discussed, thankfully the CT scan confirms that there is no bowel within your hernia, and is only abdominal fat. Though it is quite painful, this is not something that would require immediate surgery, as I discussed with you I have been in close contact with our on-call surgeon.] *What to do: *Please continue to take your regular medications as directed. [ x] New medication prescriptions sent to your pharmacy: [Yair Sanchez ] [ ] New medication written as a paper prescription [ ] No new medications given *Please follow up with your surgeon, call for an appointment. Let them know you were seen in the Emergency Department and that we ask that you be seen in follow up. *Return to Emergency Department if you should have any new, worsening or concerning symptoms, such as [fever greater than 101 F, shaking chills, worsening pain, persistent vomiting or other bothersome symptoms] Prescriptions: New hydrocodone-acetaminophen 5-325 mg tablet 1 tab PO Q4-6H PRN (Reason: pain) Qty: 20 0RF ondansetron 4 mg tablet,disintegrating 4 mg PO TID-QID PRN (Reason: nausea and vomiting) Qty: 10 0RF No Action hydrochlorothiazide 12.5 mg capsule 12.5 mg PO DAILY acetaminophen 325 mg tablet 500 mg PO DAILY PRN (Reason: Pain) ketoconazole 2 % Cream 1 applic TOPICAL BID PRN (Reason: Eczema) Lumigan 0.01 % Drops 1 drp EYE-BOTH BEDTIME docusate sodium [DOK] 100 mg Capsule 100 mg PO BID Qty: 30 0RF hydroxyzine pamoate 25 mg Capsule 25 mg PO Q6HR PRN (Reason: Nausea) Qty: 30 0RF Rx Instructions: 1 tab po every 6 hours for muscle spasms ibuprofen 400 mg Tablet 400 mg PO Q4HR Qty: 20 0RF aspirin 81 mg tablet,delayed release (DR/EC) 81 mg PO BID Qty: 0 0RF meloxicam 7.5 mg Tablet 7.5 mg PO DAILY levothyroxine 125 mcg Tablet 137 mcg PO DAILY metoprolol succinate 25 mg Tablet Extended Release 24 Hr 25 mg PO DAILY hydrocortisone 1 % Cream 1 applic TOPICAL BID Referrals: Satish Ching DO [Primary Care Provider] - Visit Report Forms: Patient Portal/API
--- NOTE | 2022-02-03 15:00 | DI.CT.S_ITS ---
PROCEDURE: CT ABDOMEN PELVIS W CON INDICATIONS: incarcerated hernia TECHNIQUE: After the administration of intravenous contrast, axial sections acquired from the lung bases to the pubic symphysis. Coronal and sagittal reformats were performed. For radiation dose reduction, the following was used: automated exposure control, adjustment of mA and/or kV according to patient size. COMPARISON: [facility], CT, CT ABDOMEN PELVIS W CON, 01/09/2021, 13:11. FINDINGS: Image quality: Excellent. Lung bases: Unremarkable. Heart: No significant findings. ABDOMEN: Liver: Unremarkable. Gallbladder: Surgically absent. Biliary ducts: Chronically dilated post cholecystectomy. No obstructing pancreatic mass. Pancreas: Unremarkable. Spleen: Unremarkable. Adrenal Glands: Unremarkable. Kidneys and Ureters: Unremarkable. Stomach and Bowel: Relatively advanced sigmoid diverticulosis without evidence of diverticulitis. Peritoneum: No abnormal intraperitoneal fluid. No free air. Ventral Wall: Small right paramidline ventral hernia in the pelvis containing fat, with significant inflammatory change in the fat. Consider incarcerated ventral hernia containing ischemic fat versus acute appendagitis which happens to be in a ventral hernia. Abdominal Nodes: No retroperitoneal or mesenteric adenopathy by size criteria. Vessels: Aorta and inferior vena cava are normal in size. PELVIS: Pelvic Organs: Unremarkable. Bladder: Unremarkable. Pelvic Nodes: No enlarged lymph nodes. Miscellaneous: No hernias are seen. Bones: Lumbar degenerative change. No lytic or blastic bony lesions. No compression fractures. At L3-L4, a peripherally calcified disc herniation contributes to canal stenosis. IMPRESSION: 1. There is significantly inflamed fat present within a right paramidline anterior pelvic ventral hernia. Consider incarcerated/strangulated fat versus acute appendagitis would simply occurs within a ventral abdominal wall defect. 2. Sigmoid diverticulosis. 3. Lumbar degenerative change. A calcified disc protrusion at L3-L4 contributes to canal stenosis. Dictated by: Jovi Rutherford M.D. on 02/03/2022 at 16:10 Approved by: Jovi Rutherford M.D. on 02/03/2022 at 16:15
[2022-02-03] MEDS: SODIUM CHLORIDE 0.9% 1,000 ML 1000 ML IV (15:13)
[2022-02-03] MEDS: HYDROMORPHONE 0.5 MG INJ IV (15:13)
[2022-02-03 15:17] LABS: Add Manual Diff / Slide Review NO; Basophils Absolute Auto 100 /uL (0-100); Basophils Percent Auto 1.2 % (0-2); Eosinophils Absolute Auto 200 /uL (0-450); Eosinophils Percent Auto 2.6 % (2-4); Hematocrit 37.9 % (36-46); Hemoglobin 13.4 g/dL (12.0-16.0); Lymphocytes Absolute Auto 3400 /uL (1100-4500); Lymphocytes Percent Auto 39.5 % (25-40); Mean Corpuscular HGB Conc 35.4 % (30-36); Mean Corpuscular Hemoglobin 31.9 PG (26-34); Mean Corpuscular Volume 90.3 fL (80-100); Monocytes Absolute Auto 700 /uL (0-900); Monocytes Percent Auto 8.2 % (3-14); Neutrophils Absolute Auto 4200 /uL (1500-7000); Neutrophils Percent Auto 48.5 % (50-75); Platelet Count 208 X10^3/uL (150-400); Red Cell Distribution Width 13.8 % (11.6-14.8); White Blood Cell Count 8.6 X10^3/uL (4.5-11.0)
[2022-02-03] MEDS: ONDANSETRON 4 MG/2 ML INJ IV (15:22)
[2022-02-03 15:30] LABS: Lactate (Lactic Acid) 1.1 mmol/L (0.7-2.1)
[2022-02-03 15:31] LABS: Alanine Aminotransferase 28 IU/L (<35); Albumin 4.3 g/dL (3.5-5.0); Albumin Globulin Ratio 1.1 (1.0-2.8); Alkaline Phosphatase 101 U/L (38-126); Aspartate Aminotransferase 30 IU/L (14-36); BUN Creatinine Ratio 23.5 (6-22); Bilirubin Total 0.6 mg/dL (0.2-1.3); Blood Urea Nitrogen 16 mg/dL (7-17); COVID19 -Nasal RAPID Negative (Negative); Calcium 9.9 mg/dL (8.4-10.2); Carbon Dioxide 27 mmol/L (22-32); Chloride 107 mmol/L (98-107); Estimated Glomerular Filt Rate > 60 mL/min (>60); Globulin 3.9 g/dL (1.7-4.1); Glucose 121 mg/dL (80-110); HEMOLYSIS < 15 (0-50); Lipase 133 U/L (23-300); Potassium 3.6 mmol/L (3.4-5.1); Sodium 143 mmol/L (137-145); Total Protein 8.2 g/dL (6.3-8.2)
--- NOTE | 2022-02-03 17:36 | PC.NURSE ---
Pt's ride can not be here for 2 hrs. Will move to a recliner in room 3
== END 2022-02-03 19:21 | disposition home or self-care (01) ==
PROVIDERS: Emergency Provider Emergency Medicine; PCP General Practice
DX: K43.9 Ventral hernia without obstruction or gangrene (principal); Z20.822 Contact with and (suspected) exposure to COVID-19
CPT/HCPCS: 36415; 74177; 80053; 81003; 83605; 83690; 85025; 87040; 87635; 96361; 96374; 96375; 99284; C9803; J1170; J2405; Q9967

== ENCOUNTER 2023-02-27 00:31 | Emergency (ER) | payer OTHER, SELFPAY ==
[2020-06-06 11:37] VITALS: BMI 36.6
[2023-02-27] VITALS (11 sets, daily range): BP systolic 115–204; BP diastolic 57–88; PULSE 63–84; RESP 12–19; TEMP 36.7; O2SAT 93–99; BMI 34.7
--- NOTE | 2023-02-27 00:45 | ED.GENADULT ---
HPI - General Adult General Chief complaint: Dizziness Stated complaint: DIZZY, HEADACHE, Time Seen by Provider: 02/27/23 00:45 History of Present Illness HPI narrative: 71-year-old female nonsmoker with history of hypertension, hypothyroid, known cerebral aneurysm, prior head injury and prior abdominal surgeries presents ongoing, gradually worsening generalized headaches, dizziness and nausea. She is been having trouble ever since a head injury in August and frequently has numbness on her central scalp and generalized headaches every day. She is seen a headache specialist in [place] and an MRI suggested intracerebral aneurysm that may be surgical. Patient was referred to a neurosurgeon in [place] who plans to do an angiogram on Thursday. The patient states that she has 1 of her typical headaches though possibly more severe than normal that is generalized and squeezing in nature. She has no obvious provocation or palliation. She is nauseated but denies any vomiting. She denies blurred vision or trouble with speech. She denies recent trauma or injury. She does not take blood thinners. Related Data Home Medications Medication Instructions Recorded Confirmed hydrocortisone 1 % topical cream 1 applic topical BID Eczema 09/27/18 01/09/21 levothyroxine 125 mcg tablet 137 mcg PO DAILY 09/27/18 01/09/21 meloxicam 7.5 mg tablet 7.5 mg PO DAILY 09/27/18 01/09/21 metoprolol succinate 25 mg 25 mg PO DAILY 09/27/18 01/09/21 tablet,extended release 24 hr acetaminophen 325 mg tablet 500 mg PO DAILY PRN Pain 05/30/20 01/09/21 bimatoprost 0.01 % eye drops 1 drp EYE-BOTH BEDTIME 05/30/20 01/09/21 ([place]) ketoconazole 2 % topical cream 1 applic topical BID PRN Eczema 05/30/20 01/09/21 hydrochlorothiazide 12.5 mg capsule 12.5 mg PO DAILY 01/31/21 01/31/21 Previous Rx's Medication Instructions Recorded aspirin 81 mg tablet,delayed 81 mg PO BID #0 tabs 06/07/20 release docusate sodium 100 mg capsule 100 mg PO BID #30 caps 06/07/20 (DOK) hydroxyzine pamoate 25 mg capsule 25 mg PO Q6HR PRN Nausea #30 caps 06/07/20 ibuprofen 400 mg tablet 400 mg PO Q4HR #20 tabs 06/07/20 hydrocodone 5 mg-acetaminophen 325 1 tab PO Q4-6H PRN pain #20 tabs 02/03/22 mg tablet ondansetron 4 mg disintegrating 4 mg PO TID-QID PRN nausea and 02/03/22 tablet vomiting #10 tabs Allergies Allergy/AdvReac Type Severity Reaction Status Date / Time morphine AdvReac Severe Shortness Verified 01/31/21 10:54 of breath, tachycardia Review of Systems Review of Systems Narrative: GENERAL: Denies chills, fatigue, malaise, fever, sweats. HEENT: Denies sinus pain, ear pain, sore throat, difficulty swallowing, dizziness. RESPIRATORY: Denies dyspnea, cough, wheezing, hemoptysis, sputum. CARDIOVASCULAR: Denies chest pain, palpitations, orthopnea, edema, GASTROINTESTINAL: Denies nausea, vomiting, abdominal pain, diarrhea, constipation, melena. : Denies dysuria, frequency, incontinence, hematuria, urinary retention. MUSCULOSKELETAL: denies weakness, joint pain, or bony pain SKIN: Denies rash, skin lesions, or other NEUROLOGIC: See HPI PSYCHIATRIC: No concerning psychosocial issues. 12 point review of systems is negative except for those stated above Patient History Medical History At risk for sleep apnea Eczema Heart murmur HLD (hyperlipidemia) HTN (hypertension) Hypothyroid Kidney stones Lower back pain Moderate aortic stenosis Osteoarthritis Seborrheic keratoses Surgical History History of arthroplasty of right knee (10/07/18) History of bilateral carpal tunnel release History of bilateral tubal ligation (~1971) History of bladder suspension procedure Hx of appendectomy Hx of cardiac cath Hx of cholecystectomy Hx of dilation and curettage (10/2010) Hx of elbow surgery Hx of hernia repair Hx of tonsillectomy Hx of umbilical hernia repair (2005) S/P right oophorectomy Status post hysteroscopic polypectomy Social History household members: family Smoking Status: Never smoker alcohol intake: never Smoking Status: Never smoker Substance Use Type: does not use Exam Narrative Exam Narrative: GENERAL: [72] year old patient appears stated age. Well-developed patient, in mild distress. HEAD: Atraumatic. Normocephalic. EYES: Pupils equal round and reactive. Extraocular motions intact. No scleral icterus. No injection or drainage. ENT: Nose without bleeding, purulent drainage. Throat without erythema, tonsillar hypertrophy or exudate. Airway patent. NECK: Trachea midline. Non tender, no meningeal signs CARDIOVASCULAR: Regular rate and rhythm without murmurs, gallops, or rubs. RESPIRATORY: Clear to auscultation. Breath sounds equal bilaterally. No wheezes, rales, or rhonchi. GASTROINTESTINAL: Abdomen soft, non-tender, nondistended. EXTREMITIES: No edema or joint tenderness. BACK: Nontender without deformity or crepitance. No flank tenderness. NEURO: AOx3. SKIN: No rash or erythema of visible areas Initial Vital Signs Initial Vital Signs: Vital Signs Temperature 98.1 F 02/27/23 00:38 Pulse Rate 63 02/27/23 00:38 Respiratory Rate 18 02/27/23 00:38 Blood Pressure 204/88 H 02/27/23 00:38 Pulse Oximetry 97 02/27/23 00:38 Oxygen Delivery Method Room Air 02/27/23 00:38 Course Orders Ordered: ED Orders 02/27/23 00:58 CT angio head and neck Stat 02/27/23 01:15 Complete Blood Count AUTO DIFF Stat Comprehensive Metabolic Panel Stat Magnesium Stat Discontinued Medications Sodium Chloride (Normal Saline 0.9%) 500 mls @ 1,000 mls/hr IV BOLUS ONE Stop: 02/27/23 01:27 Last Infusion: 02/27/23 02:00 Dose: 0 mls/hr Documented By: Admin: 02/27/23 01:31 Dose: 1,000 mls/hr Documented By: YEIMI Acetaminophen (Ofirmev) 1,000 mg in 100 mls @ 400 mls/hr IV NOW ONE Stop: 02/27/23 01:12 Last Infusion: 02/27/23 01:46 Dose: 0 mls/hr Documented By: Admin: 02/27/23 01:31 Dose: 400 mls/hr Documented By: YEIMI Ondansetron HCl (Ondansetron 4 Mg/2 Ml Inj) 4 mg IV NOW ONE Stop: 02/27/23 00:59 Last Admin: 02/27/23 02:24 Dose: 4 mg Documented By: YEIMI Pantoprazole Sodium (Pantoprazole 40 Mg Vial) 40 mg IV NOW ONE Stop: 02/27/23 00:59 Last Admin: 02/27/23 01:31 Dose: 40 mg Documented By: YEIMI Reevaluation(s) Reevaluation #1: Patient has significant if not complete resolution of symptoms with above-stated therapies Vital Signs Vital signs: Vital Signs - 8 hr 02/27/23 00:38 02/27/23 01:24 02/27/23 01:27 Temperature 98.1 F Pulse Rate 63 63 65 Respiratory Rate 18 14 17 Blood Pressure 204/88 H Pulse Oximetry 97 98 Oxygen Delivery Method Room Air 02/27/23 01:27 02/27/23 01:30 02/27/23 01:30 Temperature Pulse Rate 66 Respiratory Rate 17 Blood Pressure 190/78 H 171/75 H Pulse Oximetry 98 Oxygen Delivery Method 02/27/23 02:15 02/27/23 02:16 02/27/23 02:16 Temperature Pulse Rate 65 64 Respiratory Rate 12 Blood Pressure 176/72 H Pulse Oximetry 95 97 Oxygen Delivery Method 02/27/23 02:30 02/27/23 02:31 02/27/23 02:31 Temperature Pulse Rate 64 64 Respiratory Rate 16 18 Blood Pressure 145/66 H Pulse Oximetry 94 93 Oxygen Delivery Method 02/27/23 03:01 02/27/23 03:01 02/27/23 03:30 Temperature Pulse Rate 74 Respiratory Rate 16 Blood Pressure 115/57 L 140/63 Pulse Oximetry 98 Oxygen Delivery Method 02/27/23 03:30 Temperature Pulse Rate 63 Respiratory Rate 19 Blood Pressure Pulse Oximetry 95 Oxygen Delivery Method Medical Decision Making Lab Data 02/27/23 01:15 02/27/23 01:15 Labs: Lab Results 02/27/23 02/27/23 Range/Units 01:15 01:15 WBC 11.3 H (4.5-11.0) X10^3/uL RBC 4.24 (4.0-5.2) X10^6/uL Hgb 13.3 (12.0-16.0) g/dL Hct 37.7 (36-46) % MCV 89.0 (80-100) fL MCH 31.3 (26-34) PG MCHC 35.2 (30-36) % RDW 13.5 (11.6-14.8) % Plt Count 180 (150-400) X10^3/uL Neut % (Auto) 65.8 (50-75) % Lymph % (Auto) 23.8 L (25-40) % Benzie % (Auto) 7.5 (3-14) % Eos % (Auto) 1.6 L (2-4) % Baso % (Auto) 1.3 (0-2) % Neut # (Auto) 7500 H (4896-5425) /uL Lymph # (Auto) 2700 (5998-3154) /uL Benzie # (Auto) 900 (0-900) /uL Eos # (Auto) 200 (0-450) /uL Baso # (Auto) 100 (0-100) /uL Sodium 140 (137-145) mmol/L Potassium 3.4 (3.4-5.1) mmol/L Chloride 105 (98-107) mmol/L Carbon Dioxide 27 (22-32) mmol/L BUN 23 H (7-17) mg/dL Creatinine 0.65 (0.52-1.04) mg/dL Estimated GFR > 60 (>60) mL/min BUN/Creatinine Ratio 35.4 H (6-22) Glucose 172 H (80-110) mg/dL Calcium 10.3 H (8.4-10.2) mg/dL Magnesium 1.6 (1.6-2.3) mg/dL Total Bilirubin 0.6 (0.2-1.3) mg/dL AST 35 (14-36) IU/L ALT 38 H (<35) IU/L Alkaline Phosphatase 120 (38-126) U/L Total Protein 7.9 (6.3-8.2) g/dL Albumin 4.1 (3.5-5.0) g/dL Globulin 3.8 (1.7-4.1) g/dL Albumin/Globulin Ratio 1.1 (1.0-2.8) MDM Narrative Medical decision making narrative: CC: 72-year-old female with chronic the worsening headaches Complicating co-morbidities: Age, known aneurysm Data collected from: Patient Medical records reviewed: Prior notes reviewed in our EMR Differential considered, but not limited to: Postconcussive syndrome versus intracerebral hemorrhage versus aneurysmal bleed versus other Exam documented above, pertinent findings include: No focal neurologic findings, heart rate regular, lungs clear, abdomen is soft Lab Test results independently reviewed as above. Pertinent findings: Slight leukocytosis at 11.3, no left shift, no signs of anemia Independently reviewed EKG as above Imaging studies independently reviewed: CT angiogram of head and neck demonstrates patent vasculature with the presence aneurysms in the supraclinoid right internal carotid artery measuring up to 5 mm which are reported known by family and actually measuring smaller than other imaging modalities have suggested, there is no evidence of bleed Treatments: Fluids, Tylenol Re-evaluations: Significant improvement Discussion: Patient with chronic headaches in the aftermath of head injury in August presents with a headache that is relatively similar in her typical presentation accept perhaps a slight more intense. No seizure, no blurred vision no other neurologic findings. She had significant if not complete resolution of symptoms with IV Tylenol. No fever, no neck pain. Imaging demonstrates known cerebral aneurysms and no evidence of rupture. Symptoms tonight would seem to be most consistent with a postconcussive syndrome as there is no evidence of intracranial hemorrhage or aneurysmal bleed. She has an appointment set up with her neurosurgical team for angiography early next week. Return precautions discussed and questions answered to her apparent satisfaction Disposition: see below, along with detailed discharge instructions that have been reviewed with patient as well as indications for ED re-evaluation and additional outpatient follow up Discharge Plan Departure Patient Disposition: Home Clinical Impression: Post concussion syndrome, Headache, Aneurysm, cerebral Instructions: DI for Headache Activity Restrictions/Additional Instructions: *You have been diagnosed with [headache. As we discussed your history and physical exam as well as labs and imaging are reassuring. There is no evidence of a ruptured aneurysm in your response to IV Tylenol is very reassuring] *What to do: *Please continue to take your regular medications as directed. *Please follow up with your medical team in [place] as planned next week, it would be a good idea to call ahead and let them know that you were seen in the emergency department tonight so they can obtain the records. *Return to ER if you should have any new, worsening or concerning symptoms, such as [ fever > 101F, neck pain or stiffness, vomiting, confusion, seizure, focal weakness, vision change, speech deficit or other concerning symptoms ] Prescriptions: No Action hydrochlorothiazide 12.5 mg capsule 12.5 mg PO DAILY acetaminophen 325 mg tablet 500 mg PO DAILY PRN (Reason: Pain) ketoconazole 2 % Cream 1 applic TOPICAL BID PRN (Reason: Eczema) Lumigan 0.01 % Drops 1 drp EYE-BOTH BEDTIME docusate sodium [DOK] 100 mg Capsule 100 mg PO BID Qty: 30 0RF hydroxyzine pamoate 25 mg Capsule 25 mg PO Q6HR PRN (Reason: Nausea) Qty: 30 0RF Rx Instructions: 1 tab po every 6 hours for muscle spasms ibuprofen 400 mg Tablet 400 mg PO Q4HR Qty: 20 0RF aspirin 81 mg tablet,delayed release (DR/EC) 81 mg PO BID Qty: 0 0RF hydrocodone-acetaminophen 5-325 mg tablet 1 tab PO Q4-6H PRN (Reason: pain) Qty: 20 0RF ondansetron 4 mg tablet,disintegrating 4 mg PO TID-QID PRN (Reason: nausea and vomiting) Qty: 10 0RF meloxicam 7.5 mg Tablet 7.5 mg PO DAILY levothyroxine 125 mcg Tablet 137 mcg PO DAILY metoprolol succinate 25 mg Tablet Extended Release 24 Hr 25 mg PO DAILY hydrocortisone 1 % Cream 1 applic TOPICAL BID Referrals: Satish Ching DO [Primary Care Provider] - Stand Alone Forms: Patient Portal/API
--- NOTE | 2023-02-27 00:58 | DI.CT.S_ITS ---
PROCEDURE: CT ANGIO HEAD AND NECK INDICATIONS: severe headache, known aneurysm TECHNIQUE: After the administration of intravenous contrast, 1 mm thick sections acquired from the aortic arch through the [place]. 3-dimensional pmjvlxp-widcerumf-cieffzwvre (MIP) and/or volume rendering reformats were acquired of the central intracranial vasculature and neck separately. For radiation dose reduction, the following was used: automated exposure control, adjustment of mA and/or kV according to patient size. COMPARISON: None. FINDINGS: Image quality: Diagnostic. BRAIN: CSF spaces: Ventricles are normal in size and shape. Basal cisterns are patent. No extra-axial fluid collections. Brain: No significant abnormality of the brain can be seen. Skull and face: Calvarium and facial bones appear intact, without suspicious lesions. Orbits appear normal. Sinuses: Sinuses and mastoids are clear. HEAD CT ANGIOGRAPHY: Anterior circulation: Intracranial internal carotid arteries are normal in size and flow. There is aneurysm arising from the supraclinoid right ICA directed inferiorly measuring 3 mm. There is a posteriorly directed infundibulum or wide necked aneurysm directed posteriorly off the left supraclinoid ICA, and another directed inferiorly measuring 3 mm. The flow within the paired anterior cerebral arteries is normal and symmetric. The flow within the middle cerebral arteries is normal and symmetric. The anterior communicating artery is seen. There are no PRABHU aneurysms. Posterior circulation: Vertebral arteries are symmetric, diminutive bilaterally, but patent. The basilar artery is diminutive but patent. Posterior cerebral arteries are patent and primarily supplied by ICA arteries through a patent posterior communicating arteries bilaterally. Cerebellar arteries are patent. NECK CT ANGIOGRAPHY: Carotid system: The great vessels demonstrate a conventional anatomy as they arise from the aortic arch. The origins of the common carotid arteries appear patent. The common carotid arteries demonstrate normal caliber and courses. The bifurcation regions are both widely patent. The internal carotid arteries demonstrate normal calibers and courses. Posterior circulation: The origins of the vertebral arteries both appear widely patent. The more superior extracranial portions of both vertebral arteries also demonstrate normal courses and symmetrically diminutive caliber. Basilar artery is diminutive. Soft tissues: Visualized neck soft tissues demonstrate no suspicious abnormalities. Bones: No suspicious bony lesions. Visualized cervical spine appears normally aligned. Degenerative changes at the atlantodental interval. IMPRESSION: 1. Bilateral supraclinoid internal carotid artery aneurysms. 2. Patent intracranial and neck vasculature. 3. Final interpretation is concordant with preliminary report. Any quantitative measurements of stenosis were performed using NASCET criteria. Dictated by: Verenice Arora M.D. on 02/27/2023 at 10:04 Approved by: Verenice Arora M.D. on 02/27/2023 at 10:14
[2023-02-27] MEDS: ACETAMINOPHEN IV 1,000 MG/100 ML VIAL 400 MG IV (01:31)
[2023-02-27] MEDS: SODIUM CHLORIDE 0.9% 500 ML 1000 ML IV (01:31)
[2023-02-27] MEDS: PANTOPRAZOLE 40 MG VIAL IV (01:31)
[2023-02-27 01:34] LABS: Add Manual Diff / Slide Review NO; Basophils Absolute Auto 100 /uL (0-100); Basophils Percent Auto 1.3 % (0-2); Eosinophils Absolute Auto 200 /uL (0-450); Eosinophils Percent Auto 1.6 % (2-4); Hematocrit 37.7 % (36-46); Hemoglobin 13.3 g/dL (12.0-16.0); Lymphocytes Absolute Auto 2700 /uL (1100-4500); Lymphocytes Percent Auto 23.8 % (25-40); Mean Corpuscular HGB Conc 35.2 % (30-36); Mean Corpuscular Hemoglobin 31.3 PG (26-34); Monocytes Absolute Auto 900 /uL (0-900); Monocytes Percent Auto 7.5 % (3-14); Neutrophils Absolute Auto 7500 /uL (1500-7000); Neutrophils Percent Auto 65.8 % (50-75); Platelet Count 180 X10^3/uL (150-400); Red Blood Cell Count 4.24 X10^6/uL (4.0-5.2); Red Cell Distribution Width 13.5 % (11.6-14.8); White Blood Cell Count 11.3 X10^3/uL (4.5-11.0)
[2023-02-27 01:50] LABS: Alanine Aminotransferase 38 IU/L (<35); Albumin 4.1 g/dL (3.5-5.0); Albumin Globulin Ratio 1.1 (1.0-2.8); Alkaline Phosphatase 120 U/L (38-126); Aspartate Aminotransferase 35 IU/L (14-36); BUN Creatinine Ratio 35.4 (6-22); Bilirubin Total 0.6 mg/dL (0.2-1.3); Blood Urea Nitrogen 23 mg/dL (7-17); Calcium 10.3 mg/dL (8.4-10.2); Carbon Dioxide 27 mmol/L (22-32); Chloride 105 mmol/L (98-107); Estimated Glomerular Filt Rate > 60 mL/min (>60); Globulin 3.8 g/dL (1.7-4.1); Glucose 172 mg/dL (80-110); Magnesium 1.6 mg/dL (1.6-2.3); Sodium 140 mmol/L (137-145); Total Protein 7.9 g/dL (6.3-8.2)
[2023-02-27 01:51] LABS: HEMOLYSIS 60 (0-50); Potassium 3.4 mmol/L (3.4-5.1)
[2023-02-27] MEDS: ONDANSETRON 4 MG/2 ML INJ IV (02:24)
== END 2023-02-27 04:05 | disposition home or self-care (01) ==
PROVIDERS: Emergency Provider Emergency Medicine; PCP General Practice
DX: I67.1 Cerebral aneurysm, nonruptured (principal); F07.81 Postconcussional syndrome; G44.309 Post-traumatic headache, unspecified, not intractable
CPT/HCPCS: 36415; 70496; 70498; 80053; 81003; 83735; 85025; 93005; 93010; 96374; 96375; 99284; C9113; J0131; J2405; Q9967

== ENCOUNTER 2023-11-10 17:17 | Emergency (ER) | payer MEDICARE, MEDICAID, SELFPAY ==
[2020-06-06 11:37] VITALS: BMI 36.6
[2023-11-10] VITALS (28 sets, daily range): BP systolic 130–201; BP diastolic 61–122; PULSE 73–161; RESP 12–43; TEMP 36.6; O2SAT 94–99
--- NOTE | 2023-11-10 17:36 | DI.RAD.S_ITS ---
PROCEDURE: XR CHEST 1V INDICATIONS: Chest pain TECHNIQUE: One view of the chest was acquired. COMPARISON: [facility] greater 08/23/2022. FINDINGS: Surgical changes and devices: Aortic valve prosthesis. Lungs and pleura: Lungs are clear. No pleural effusions or pneumothorax. Mediastinum: Mediastinal contours appear normal. Heart size is normal. Bones and chest wall: No suspicious bony lesions. Overlying soft tissues appear unremarkable. Redemonstration of punctate radiodensities overlying the left axilla. IMPRESSION: No acute cardiopulmonary abnormality is seen. Approved by: Elana Grey M.D.,Ph.D. on 11/10/2023 at 17:43
[2023-11-10 17:44] LABS: Add Manual Diff / Slide Review NO; Basophils Absolute Auto 0 /uL (0-100); Basophils Percent Auto 0.2 % (0-2); Eosinophils Absolute Auto 100 /uL (0-450); Eosinophils Percent Auto 1.2 % (2-4); Hematocrit 41.3 % (36-46); Hemoglobin 14.5 g/dL (12.0-16.0); Lymphocytes Absolute Auto 2400 /uL (1100-4500); Lymphocytes Percent Auto 26.8 % (25-40); Mean Corpuscular Hemoglobin 31.6 PG (26-34); Mean Corpuscular Volume 90.4 fL (80-100); Monocytes Absolute Auto 700 /uL (0-900); Neutrophils Absolute Auto 5700 /uL (1500-7000); Neutrophils Percent Auto 63.8 % (50-75); Platelet Count 244 X10^3/uL (150-400); Red Blood Cell Count 4.57 X10^6/uL (4.0-5.2); Red Cell Distribution Width 13.5 % (11.6-14.8); White Blood Cell Count 8.9 X10^3/uL (4.5-11.0)
[2023-11-10 17:52] LABS: INR 0.9 (0.9-1.3); Prothrombin Time 10.8 SECONDS (9.4-12.5)
[2023-11-10 17:55] LABS: PTT Partial Thromboplastin Tim 35 SECONDS (25.1-36.5)
[2023-11-10 17:57] LABS: Alanine Aminotransferase 53 IU/L (<35); Albumin 4.5 g/dL (3.5-5.0); Albumin Globulin Ratio 1.1 (1.0-2.8); Alkaline Phosphatase 127 U/L (38-126); Aspartate Aminotransferase 51 IU/L (14-36); Blood Urea Nitrogen 13 mg/dL (7-17); Calcium 10.1 mg/dL (8.4-10.2); Carbon Dioxide 21 mmol/L (22-32); Chloride 113 mmol/L (98-107); Creatine Kinase 83 U/L (30-135); Estimated Glomerular Filt Rate > 60 mL/min (>60); Globulin 4.2 g/dL (1.7-4.1); Glucose 189 mg/dL (80-110); HEMOLYSIS 164 (0-50); Lipase 157 U/L (23-300); Magnesium 1.8 mg/dL (1.6-2.3); Sodium 141 mmol/L (137-145); Total Protein 8.7 g/dL (6.3-8.2)
[2023-11-10 17:58] LABS: Potassium 4.3 mmol/L (3.4-5.1)
[2023-11-10 18:08] LABS: Troponin I 0.014 ng/mL (0.01-0.034)
--- NOTE | 2023-11-10 18:21 | ED.CHESTPAIN ---
HPI - Chest Pain General Chief Complaint: Chest Pain Stated Complaint: Chest Pain, Afib RVR Time Seen by Provider: 11/10/23 17:35 Source: patient and EMS Mode of arrival: EMS Limitations: no limitations History of Present Illness HPI narrative: 73-year-old female presents by EMS from home for chest pain that occurred just prior to arrival. Patient states that she was in her kitchen and drank a glass of water. She states that shortly afterwards she developed chest pain described as a pressure sensation and called 911. On arrival patient was evaluated by medics and found to be in atrial fibrillation with rapid ventricular response. Patient denies history of atrial fibrillation or other significant heart disease. 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 She states she has no restrictions to blood thinners and is currently on Brilinta EN route to the emergency department by EMS patient was given 10 mg of IV diltiazem with brief improvement in heart rate to 90 beats per minute, however by the time of arrival to the emergency department heart rate is back in the 140s and 150s. Patient reported brief improvement in chest pain after administration of diltiazem. Related Data Home Medications Medication Instructions Recorded Confirmed hydrocortisone 1 % topical cream 1 applic topical BID Eczema 09/27/18 01/09/21 levothyroxine 125 mcg tablet 137 mcg PO DAILY 09/27/18 01/09/21 meloxicam 7.5 mg tablet 7.5 mg PO DAILY 09/27/18 01/09/21 metoprolol succinate 25 mg 25 mg PO DAILY 09/27/18 01/09/21 tablet,extended release 24 hr acetaminophen 325 mg tablet 500 mg PO DAILY PRN Pain 05/30/20 01/09/21 bimatoprost 0.01 % eye drops 1 drp EYE-BOTH BEDTIME 05/30/20 01/09/21 (Lumigan) ketoconazole 2 % topical cream 1 applic topical BID PRN Eczema 05/30/20 01/09/21 hydrochlorothiazide 12.5 mg capsule 12.5 mg PO DAILY 01/31/21 01/31/21 Previous Rx's Medication Instructions Recorded aspirin 81 mg tablet,delayed 81 mg PO BID #0 tabs 06/07/20 release docusate sodium 100 mg capsule 100 mg PO BID #30 caps 06/07/20 (DOK) hydroxyzine pamoate 25 mg capsule 25 mg PO Q6HR PRN Nausea #30 caps 06/07/20 ibuprofen 400 mg tablet 400 mg PO Q4HR #20 tabs 06/07/20 hydrocodone 5 mg-acetaminophen 325 1 tab PO Q4-6H PRN pain #20 tabs 02/03/22 mg tablet ondansetron 4 mg disintegrating 4 mg PO TID-QID PRN nausea and 02/03/22 tablet vomiting #10 tabs apixaban 5 mg tablet 5 mg PO BID #60 tabs 11/10/23 diltiazem HCl 240 mg 240 mg PO DAILY #30 caps 11/10/23 capsule,extended release 24 hr Allergies Allergy/AdvReac Type Severity Reaction Status Date / Time morphine AdvReac Severe Shortness Verified 01/31/21 10:54 of breath, tachycardia Review of Systems Review of Systems Narrative: see HPI Patient History Medical History At risk for sleep apnea Kidney stones Moderate aortic stenosis HLD (hyperlipidemia) Heart murmur Seborrheic keratoses Eczema Osteoarthritis Lower back pain Hypothyroid HTN (hypertension) Surgical History Hx of umbilical hernia repair (2005) Status post hysteroscopic polypectomy Hx of dilation and curettage (10/2010) Hx of cardiac cath History of arthroplasty of right knee (10/07/18) History of bilateral carpal tunnel release Hx of elbow surgery Hx of tonsillectomy History of bladder suspension procedure History of bilateral tubal ligation (~1971) S/P right oophorectomy Hx of appendectomy Hx of cholecystectomy Hx of hernia repair Social History household members: family Smoking Status: Never smoker alcohol intake: never Smoking Status: Never smoker Substance Use Type: does not use Exam Initial Vital Signs Initial Vital Signs: Vital Signs Blood Pressure 137/86 11/10/23 17:27 Const: Awake, alert, anxious, nontoxic appearing Cardiac: Tachycardia, irregularly irregular rhythm RESP: unlabored, clear bilaterally, no wheezing MSK: Full range of motion, no edema Skin: Warm, Dry, intact, no rashes Neuro: AO x3, CN II-XII grossly intact, moves all extremities Course Orders Ordered: Discontinued Medications Apixaban (Apixaban 5 Mg Tablet) 5 mg PO NOW ONE Stop: 11/10/23 20:00 Last Admin: 11/10/23 20:15 Dose: 5 mg Documented By: LAKSHMI Diltiazem HCl (Diltiazem 5 Mg/Ml Sdv) 20 mg IV NOW ONE Stop: 11/10/23 18:24 Last Admin: 11/10/23 18:28 Dose: Not Given Documented By: EVY Diltiazem HCl (Diltiazem 5 Mg/Ml Sdv) 20 mg IV NOW ONE Stop: 11/10/23 19:17 Last Admin: 11/10/23 19:24 Dose: 20 mg Documented By: LAKSHMI Diltiazem HCl (Diltiazem Cd 120 Mg Cap) 240 mg PO NOW ONE Stop: 11/10/23 20:00 Last Admin: 11/10/23 20:15 Dose: 240 mg Documented By: LAKSHMI Metoprolol Tartrate (Metoprolol Tartrate 5 Mg/5 Ml Inj) 5 mg IV Q5M [facility] Stop: 11/10/23 18:56 Last Admin: 11/10/23 19:08 Dose: 5 mg Documented By: Admin: 11/10/23 19:00 Dose: 5 mg Documented By: Admin: 11/10/23 18:46 Dose: 5 mg Documented By: Vital Signs Vital signs: Vital Signs - 8 hr 11/10/23 17:27 11/10/23 17:28 11/10/23 17:30 Temperature Pulse Rate 142 H Respiratory Rate 25 H Blood Pressure 137/86 130/61 Pulse Oximetry 98 Oxygen Delivery Method 11/10/23 17:30 11/10/23 17:35 11/10/23 17:39 Temperature 97.9 F Pulse Rate 151 H 153 H Respiratory Rate 14 18 Blood Pressure 137/86 131/62 Pulse Oximetry 96 99 Oxygen Delivery Method Room Air 11/10/23 17:39 11/10/23 18:00 11/10/23 18:00 Temperature Pulse Rate 161 H 147 H Respiratory Rate 24 18 Blood Pressure 130/87 Pulse Oximetry 94 96 Oxygen Delivery Method 11/10/23 18:23 11/10/23 18:23 11/10/23 18:30 Temperature Pulse Rate 157 H Respiratory Rate Blood Pressure 155/98 H 168/65 H Pulse Oximetry 95 Oxygen Delivery Method Room Air 11/10/23 18:30 11/10/23 18:42 11/10/23 18:42 Temperature Pulse Rate 159 H 147 H Respiratory Rate 15 13 Blood Pressure 159/91 H Pulse Oximetry 96 95 Oxygen Delivery Method 11/10/23 18:55 11/10/23 19:00 11/10/23 19:02 Temperature Pulse Rate 139 H Respiratory Rate 20 Blood Pressure 139/85 139/89 Pulse Oximetry 95 Oxygen Delivery Method 11/10/23 19:02 11/10/23 19:05 11/10/23 19:05 Temperature Pulse Rate 128 H 140 H Respiratory Rate 17 19 Blood Pressure 153/122 H Pulse Oximetry 96 96 Oxygen Delivery Method 11/10/23 19:06 11/10/23 19:06 11/10/23 19:10 Temperature Pulse Rate 145 H Respiratory Rate 16 Blood Pressure 131/103 H 180/110 H Pulse Oximetry 97 Oxygen Delivery Method 11/10/23 19:10 11/10/23 19:11 11/10/23 19:11 Temperature Pulse Rate 136 H 136 H Respiratory Rate 19 21 Blood Pressure 188/89 H Pulse Oximetry 96 95 Oxygen Delivery Method 11/10/23 19:15 11/10/23 19:15 11/10/23 19:24 Temperature Pulse Rate 140 H 135 H Respiratory Rate 43 H Blood Pressure 201/88 H 201/88 H Pulse Oximetry 94 Oxygen Delivery Method 11/10/23 19:25 11/10/23 19:25 11/10/23 19:30 Temperature Pulse Rate 138 H Respiratory Rate 14 Blood Pressure 185/91 H 156/67 H Pulse Oximetry 96 Oxygen Delivery Method Room Air 11/10/23 19:30 11/10/23 19:35 11/10/23 19:35 Temperature Pulse Rate 96 H 73 Respiratory Rate 21 19 Blood Pressure 138/64 Pulse Oximetry 95 95 Oxygen Delivery Method Room Air Room Air 11/10/23 19:40 11/10/23 19:40 11/10/23 19:45 Temperature Pulse Rate 79 Respiratory Rate 22 Blood Pressure 133/72 137/67 Pulse Oximetry 96 Oxygen Delivery Method Room Air 11/10/23 19:45 11/10/23 19:50 11/10/23 19:50 Temperature Pulse Rate 88 82 Respiratory Rate 14 22 Blood Pressure 143/71 H Pulse Oximetry 95 96 Oxygen Delivery Method Room Air Room Air 11/10/23 19:55 11/10/23 19:55 11/10/23 20:00 Temperature Pulse Rate 74 Respiratory Rate 14 Blood Pressure 138/68 131/74 Pulse Oximetry 95 Oxygen Delivery Method Room Air 11/10/23 20:00 Temperature Pulse Rate 84 Respiratory Rate 20 Blood Pressure Pulse Oximetry 96 Oxygen Delivery Method Room Air MDM - Chest Pain Differential Diagnosis Differential diagnosis: Likely fracture of rib, pneumothorax and stable angina Lab Data 11/10/23 17:30 11/10/23 17:30 Labs: Lab Results 11/10/23 Range/Units 17:30 WBC 8.9 (4.5-11.0) X10^3/uL RBC 4.57 (4.0-5.2) X10^6/uL Hgb 14.5 (12.0-16.0) g/dL Hct 41.3 (36-46) % MCV 90.4 (80-100) fL MCH 31.6 (26-34) PG MCHC 35.0 (30-36) % RDW 13.5 (11.6-14.8) % Plt Count 244 (150-400) X10^3/uL Neut % (Auto) 63.8 (50-75) % Lymph % (Auto) 26.8 (25-40) % [place] % (Auto) 8.0 (3-14) % Eos % (Auto) 1.2 L (2-4) % Baso % (Auto) 0.2 (0-2) % Neut # (Auto) 5700 (9117-9450) /uL Lymph # (Auto) 2400 (7666-8277) /uL [place] # (Auto) 700 (0-900) /uL Eos # (Auto) 100 (0-450) /uL Baso # (Auto) 0 (0-100) /uL PT 10.8 (9.4-12.5) SECONDS INR 0.9 (0.9-1.3) APTT 35 (25.1-36.5) SECONDS Sodium 141 (137-145) mmol/L Potassium 4.3 (3.4-5.1) mmol/L Chloride 113 H (98-107) mmol/L Carbon Dioxide 21 L (22-32) mmol/L BUN 13 (7-17) mg/dL Creatinine 0.52 (0.52-1.04) mg/dL Estimated GFR > 60 (>60) mL/min BUN/Creatinine Ratio 25.0 H (6-22) Glucose 189 H (80-110) mg/dL Calcium 10.1 (8.4-10.2) mg/dL Magnesium 1.8 (1.6-2.3) mg/dL Total Bilirubin 1.0 (0.2-1.3) mg/dL AST 51 H (14-36) IU/L ALT 53 H (<35) IU/L Alkaline Phosphatase 127 H (38-126) U/L Total Creatine Kinase 83 (30-135) U/L Troponin I 0.014 (0.01-0.034) ng/mL Total Protein 8.7 H (6.3-8.2) g/dL Albumin 4.5 (3.5-5.0) g/dL Globulin 4.2 H (1.7-4.1) g/dL Albumin/Globulin Ratio 1.1 (1.0-2.8) Lipase 157 (23-300) U/L TSH 0.047 L (0.47-4.68) uIU/mL Imaging Data Chest x-ray: Radiologist's Impression: PROCEDURE: XR CHEST 1V INDICATIONS: Chest pain TECHNIQUE: One view of the chest was acquired. COMPARISON: [facility] 08/23/2022. FINDINGS: Surgical changes and devices: Aortic valve prosthesis. Lungs and pleura: Lungs are clear. No pleural effusions or pneumothorax. Mediastinum: Mediastinal contours appear normal. Heart size is normal. Bones and chest wall: No suspicious bony lesions. Overlying soft tissues appear unremarkable. Redemonstration of punctate radiodensities overlying the left axilla. IMPRESSION: No acute cardiopulmonary abnormality is seen. Approved by: Elana Grey M.D.,Ph.D. on 11/10/2023 at 17:43 ECG Data Interpretation: Atrial fibrillation with rapid ventricular response at 125 beats per minute. Normal axis, no ST T wave changes, no STEMI. [facility] Narrative Medical decision making narrative: Chest pain after drinking a glass of water. Found to be in atrial fibrillation with rapid ventricular response. Patient denies history of atrial fibrillation. She states that this episode of symptoms happened after drinking water, however 1 week prior she did feel like her heartbeat was racing, although at that time she did not have chest pain. Due to questionable onset of symptoms 1 week prior cardioversion deferred at this time, and rate control will be attempted. EKG AFib with RVR, no obvious ischemic findings. Laboratory work reviewed, WBC count 8.9, hemoglobin 14.5, platelets 244, sodium 141, potassium 4.3, creatinine 0.52, troponin 0.014. Patient was given metoprolol 5 mg IV x3 without significant sustained improvement in heart rate. Patient has subsequently received 20 mg of IV diltiazem with marked improvement in heart rate. After heart rate controlled patient reported resolution of her chest pain and stated that she felt significantly better. Patient to be continued on diltiazem and Eliquis. She was counseled to follow up with Cardiology, and she stated that she would call her outside maintenance worker at [facility]. Patient given precautions around using blood thinners and when to return to the emergency department. Critical Care Time Critical Care Time Critical Care Time: Yes Total Critical Care Time: 43 Attestation: Atrial fibrillation with rapid ventricular response requiring numerous doses of IV blood pressure and heart rate medications. Discharge Plan Departure Patient Disposition: Home Clinical Impression: Atrial fibrillation with RVR Instructions: DI for Atrial Fibrillation Activity Restrictions/Additional Instructions: You were seen today for atrial fibrillation with rapid ventricular response. Your heart rate improved significantly with diltiazem, but did not seem to respond very well to metoprolol. We are starting you on a daily diltiazem as well as a daily blood thinning medication called Eliquis. Please make sure that you take these as prescribed. Please follow up with your outside maintenance worker. Of note, your thyroid stimulating hormone was low today. The value was 0.047 (normal 0.47-4.68). This may be contributing to your atrial fibrillation, however based on this single blood value I can not say this for sure. Please follow up with both your outside maintenance worker and your primary care physician. Prescriptions: New diltiazem HCl 240 mg capsule,extended release 24hr 240 mg PO DAILY Qty: 30 0RF apixaban 5 mg tablet 5 mg PO BID Qty: 60 0RF No Action hydrochlorothiazide 12.5 mg capsule 12.5 mg PO DAILY acetaminophen 325 mg tablet 500 mg PO DAILY PRN (Reason: Pain) ketoconazole 2 % Cream 1 applic TOPICAL BID PRN (Reason: Eczema) Lumigan 0.01 % Drops 1 drp EYE-BOTH BEDTIME docusate sodium [DOK] 100 mg Capsule 100 mg PO BID Qty: 30 0RF hydroxyzine pamoate 25 mg Capsule 25 mg PO Q6HR PRN (Reason: Nausea) Qty: 30 0RF Rx Instructions: 1 tab po every 6 hours for muscle spasms ibuprofen 400 mg Tablet 400 mg PO Q4HR Qty: 20 0RF aspirin 81 mg tablet,delayed release (DR/EC) 81 mg PO BID Qty: 0 0RF hydrocodone-acetaminophen 5-325 mg tablet 1 tab PO Q4-6H PRN (Reason: pain) Qty: 20 0RF ondansetron 4 mg tablet,disintegrating 4 mg PO TID-QID PRN (Reason: nausea and vomiting) Qty: 10 0RF meloxicam 7.5 mg Tablet 7.5 mg PO DAILY levothyroxine 125 mcg Tablet 137 mcg PO DAILY metoprolol succinate 25 mg Tablet Extended Release 24 Hr 25 mg PO DAILY hydrocortisone 1 % Cream 1 applic TOPICAL BID Referrals: Satish Ching DO [Primary Care Provider] - Stand Alone Forms: Patient Portal/API
[2023-11-10 18:40] LABS: Thyroid Stimulating Hormone 0.047 uIU/mL (0.47-4.68)
[2023-11-10] MEDS: METOPROLOL TARTRATE 5 MG/5 ML INJ IV ×3 (18:46→19:08)
[2023-11-10] MEDS: dilTIAZem 5 MG/ML SDV 20 MG IV (19:24)
[2023-11-10] MEDS: APIXABAN 5 MG TABLET PO (20:15)
[2023-11-10] MEDS: dilTIAZem CD 120 MG CAP 240 MG PO (20:15)
== END 2023-11-10 20:32 | disposition home or self-care (01) ==
PROVIDERS: Emergency Medicine; Emergency Provider Emergency Medicine; PCP General Practice
DX: I48.91 Unspecified atrial fibrillation (principal)
CPT/HCPCS: 71045; 80053; 82550; 83690; 83735; 84443; 84484; 85025; 85610; 85730; 93005; 96374; 96375; 99284; 99291

== ENCOUNTER → 2024-11-25 10:55 | Outpatient (CLI) | payer MEDICARE, MEDICAID, SELFPAY ==
[2020-06-06 11:37] VITALS: BMI 36.6
== END ==
PROVIDERS: PCP General Practice; Visit Provider Nurse Practitioner Family
DX: R30.0 Dysuria (principal)
CPT/HCPCS: 87077; 87086; 87186

== ENCOUNTER → 2024-12-04 14:48 | Outpatient (CLI) | payer MEDICARE, MEDICAID, SELFPAY ==
[2020-06-06 11:37] VITALS: BMI 36.6
== END ==
PROVIDERS: PCP General Practice; Visit Provider Nurse Practitioner Family
DX: R30.0 Dysuria (principal)
CPT/HCPCS: 87077; 87086; 87186; 87210